=== PATIENT | male | born 1980 | race Hispanic/Latino ===

== ENCOUNTER 2018-04-03 20:23 | Emergency (ER) | payer MEDICARE ==
[~2018-04-03 20:23] MED LIST: ATOR20TA65 PO; LISI1TAB13 PO; METF10004 PO; METO-408 PO; MIRT15TA6 PO; OMEP20CA10 PO; PHEN100C9 PO; PROM25TA7 PO; RISP2TAB22 PO; ROPI2TAB2 PO; SERT100T12 PO; TAMS0.4C32 PO
[2018-04-03] MEDS ORDERED: AMOXICILLIN/POTASSIUM CLAV 875-125 TABLET PO ONE (20:46)
[2018-04-03] MEDS ORDERED: TETANUS/DIPHTHERIA TOXOID [ADULT] 0.5 ML VIAL IM ONE (20:47)
[2018-04-03] MEDS ORDERED: ACETAMINOPHEN EXTRA STRENGTH 500 MG TABLET ONE (21:27)
== END 2018-04-03 22:23 | disposition home or self-care (01) ==
LOC: EDH 20:23
DX: S61.452A Open bite of left hand, initial encounter (principal); E11.9 Type 2 diabetes mellitus without complications; E78.5 Hyperlipidemia, unspecified; I10 Essential (primary) hypertension; Z88.8 Allergy status to other drugs, medicaments and biological substances; W54.0XXA Bitten by dog, initial encounter; Y93.01 Activity, walking, marching and hiking; Y92.096 Garden or yard of other non-institutional residence as the place of occurrence of the external cause; Y99.8 Other external cause status
CPT/HCPCS: 12042; 73130; 90471; 90714

== ENCOUNTER 2018-12-25 20:48 | Emergency (ER) | payer MEDICARE ==
[~2018-12-25 20:48] MED LIST changes: +METF-446 PO; -METF10004 PO
[2018-12-25] MEDS ORDERED: SODIUM CHLORIDE 0.9% 500ML 500 ML IV ONE ×2 (21:53→22:59)
[2018-12-25 22:11] LABS: BASOPHILS % (AUTO) 0.4 % (0.0-5.0); EOSINOPHILS % (AUTO) 0.3 % (0.0-8.0); HEMATOCRIT 44.4 % (42-54); LYMPHOCYTES % (AUTO) 16.9 % (21.0-51.0); MEAN CORPUSCULAR HEMOGLOBIN 32.4 pg (27.0-33.0); MEAN CORPUSCULAR HGB CONC 34.6 g/dL (32.0-36.0); MEAN CORPUSCULAR VOLUME 93.6 fL (79-99); MONOCYTES % (AUTO) 4.6 % (3.0-13.0); NEUTROPHILS % (AUTO) 77.8 % (40.0-77.0); PLATELET COUNT (AUTO) 236 K/uL (130-400); RED BLOOD CELL COUNT(AUTO) 4.74 MIL/uL (4.50-6.20); RED CELL DISTRIBUTION WIDTH 12.5 % (11.0-15.5); WHITE BLOOD COUNT (AUTO) 9.9 K/uL (4.8-10.8)
[2018-12-25 22:14] LABS: POTASSIUM 3.6 mmol/L (3.5-5.1)
[2018-12-25 22:19] LABS: ALBUMIN 3.8 g/dL (3.5-5.0); BILIRUBIN,TOTAL 0.2 mg/dL (0.2-1.0); PHENYTOIN (DILANTIN) 1.5 mcg/mL (10.0-20.0); TOTAL PROTEIN, SERUM 7.6 g/dL (6.0-8.3)
[2018-12-25] MEDS ORDERED: PHENYTOIN SODIUM 100 MG ERCAP PO ONE (22:57)
[2018-12-25] MEDS ORDERED: PHENYTOIN SODIUM 50 MG/ML 5ML VIAL ONE (22:58)
== END 2018-12-26 01:28 | disposition home or self-care (01) ==
LOC: EDH 20:48
DX: S01.552A Open bite of oral cavity, initial encounter (principal); G40.802 Other epilepsy, not intractable, without status epilepticus; E11.65 Type 2 diabetes mellitus with hyperglycemia; R79.89 Other specified abnormal findings of blood chemistry; E78.5 Hyperlipidemia, unspecified; I10 Essential (primary) hypertension; Z72.0 Tobacco use; Z88.8 Allergy status to other drugs, medicaments and biological substances; Z79.899 Other long term (current) drug therapy; X58.XXXA Exposure to other specified factors, initial encounter; Y93.89 Activity, other specified; Y92.098 Other place in other non-institutional residence as the place of occurrence of the external cause; Y99.8 Other external cause status
CPT/HCPCS: 36415; 80053; 80185; 85025; 96365; 96366; 99283; J1165; J7040 ×2

== ENCOUNTER 2019-03-25 03:43 | Emergency (ER) | payer MEDICARE ==
[~2019-03-25 03:43] MED LIST changes: -PHEN100C9 PO
[2019-03-25 04:10] LABS: APPEARANCE,URINE Clear (CLEAR); BILIRUBIN,URINE Negative (NEGATIVE); COLOR,URINE Yellow (YELLOW); GLUCOSE, URINE (UA) Negative (NEGATIVE); KETONES,URINE Negative (NEGATIVE); LEUKOCYTE ESTERASE ,URINE Negative (NEGATIVE); NITRATE,URINE Negative (NEGATIVE); OCCULT BLOOD,URINE Negative (NEGATIVE); PH,URINE 6.5 (5.0-8.0); PROTEIN,URINE Negative (NEGATIVE); UROBILINOGEN,URINE 0.2 mg/dL (0.2-1.0)
[2019-03-25 04:11] LABS: BASOPHILS % (AUTO) 0.5 % (0.0-5.0); EOSINOPHILS % (AUTO) 0.3 % (0.0-8.0); HEMATOCRIT 40.3 % (42-54); LYMPHOCYTES % (AUTO) 18.6 % (21.0-51.0); MEAN CORPUSCULAR HEMOGLOBIN 33.8 pg (27.0-33.0); MEAN CORPUSCULAR HGB CONC 35.1 g/dL (32.0-36.0); MEAN CORPUSCULAR VOLUME 96.1 fL (79-99); MONOCYTES % (AUTO) 5.1 % (3.0-13.0); NEUTROPHILS % (AUTO) 75.5 % (40.0-77.0); PLATELET COUNT (AUTO) 220 K/uL (130-400); RED BLOOD CELL COUNT(AUTO) 4.19 MIL/uL (4.50-6.20)
[2019-03-25 04:19] LABS: AMPHET/METH SCREEN,URINE NEGATIVE (NEGATIVE); BARBITURATE SCREEN, URINE NEGATIVE (NEGATIVE); BENZODIAZEPINES SCREEN,URINE NEGATIVE (NEGATIVE); CANNABINOID SCREEN,URINE NEGATIVE (NEGATIVE); COCAINE SCREEN,URINE NEGATIVE (NEGATIVE); OPIATE SCREEN,URINE NEGATIVE (NEGATIVE); PHENCYCLIDINE SCREEN,URINE NEGATIVE (NEGATIVE)
[2019-03-25 04:20] LABS: CREATININE 0.7 mg/dL (0.5-1.5); POTASSIUM 3.4 mmol/L (3.5-5.1)
[2019-03-25 04:25] LABS: ALBUMIN 3.5 g/dL (3.5-5.0); BILIRUBIN,TOTAL 0.1 mg/dL (0.2-1.0); PHENYTOIN (DILANTIN) 6.1 mcg/mL (10.0-20.0); TOTAL PROTEIN, SERUM 6.8 g/dL (6.0-8.3)
[2019-03-25 04:29] LABS: PARTIAL THROMBOPLASTIN TIME 29.1 SEC (26.3-35.5); PROTHROMBIN TIME 10.5 SEC (9.6-11.6)
[2019-03-25] MEDS ORDERED: LEVETIRACETAM 500 MG/5 ML SD VIAL IV ONE (04:29)
[2019-03-25] MEDS ORDERED: SODIUM CHLORIDE 0.9% 250 ML IV ONE (04:30)
[2019-03-25] MEDS ORDERED: PHENYTOIN SODIUM 100 MG ERCAP PO ONE (04:58)
== END 2019-03-25 05:55 | disposition home or self-care (01) ==
LOC: EDH 03:43
DX: R89.2 Abnormal level of other drugs, medicaments and biological substances in specimens from other organs, systems and tissues (principal); R53.81 Other malaise; R41.0 Disorientation, unspecified; H93.19 Tinnitus, unspecified ear; E11.9 Type 2 diabetes mellitus without complications; Z88.6 Allergy status to analgesic agent; Z88.8 Allergy status to other drugs, medicaments and biological substances; Z72.0 Tobacco use
CPT/HCPCS: 36415; 80053; 80185; 80305; 81003; 82550; 83605; 84484; 85025; 85610; 85730; 93005; 96365; 99285; J1953; J7030; 96374

== ENCOUNTER 2019-09-21 20:18 | Emergency (ER) | payer MEDICARE ==
[~2019-09-21 20:18] MED LIST changes: -LISI1TAB13 PO; +LISI1TAB29 PO; +OMEP-50 PO; -OMEP20CA10 PO
[2019-09-21] MEDS ORDERED: FOSPHENYTOIN SODIUM 500 MG/10ML VIAL IJ ONE (20:53)
[2019-09-21 20:55] LABS: BASOPHILS % (AUTO) 2.9 % (0.0-5.0); EOSINOPHILS % (AUTO) 1.1 % (0.0-8.0); HEMATOCRIT 42.1 % (42-54); LYMPHOCYTES % (AUTO) 16.1 % (21.0-51.0); MEAN CORPUSCULAR HEMOGLOBIN 33.4 pg (27.0-33.0); MEAN CORPUSCULAR HGB CONC 34.7 g/dL (32.0-36.0); MEAN CORPUSCULAR VOLUME 96.2 fL (79-99); MONOCYTES % (AUTO) 3.8 % (3.0-13.0); NEUTROPHILS % (AUTO) 76.1 % (40.0-77.0); PLATELET COUNT (AUTO) 208 K/uL (130-400); RED BLOOD CELL COUNT(AUTO) 4.38 MIL/uL (4.50-6.20); RED CELL DISTRIBUTION WIDTH 13.2 % (11.0-15.5); WHITE BLOOD COUNT (AUTO) 8.1 K/uL (4.8-10.8)
[2019-09-21] MEDS ORDERED: SODIUM CHLORIDE 0.9% 1000ML 1,000 ML IV ONE (20:56)
[2019-09-21] MEDS ORDERED: SODIUM CHLORIDE 0.9% 100 ML IV ONE (20:57)
[2019-09-21 21:03] LABS: POTASSIUM 3.5 mmol/L (3.5-5.1)
[2019-09-21 21:08] LABS: ALBUMIN 3.6 g/dL (3.5-5.0); BILIRUBIN,DIRECT 0.1 mg/dL (0.0-0.3); BILIRUBIN,TOTAL 0.2 mg/dL (0.2-1.0); TOTAL PROTEIN, SERUM 7.2 g/dL (6.0-8.3)
[2019-09-21 21:24] LABS: AMPHET/METH SCREEN,URINE NEGATIVE (NEGATIVE); BARBITURATE SCREEN, URINE NEGATIVE (NEGATIVE); BENZODIAZEPINES SCREEN,URINE NEGATIVE (NEGATIVE); CANNABINOID SCREEN,URINE NEGATIVE (NEGATIVE); COCAINE SCREEN,URINE POSITIVE (NEGATIVE); OPIATE SCREEN,URINE NEGATIVE (NEGATIVE); PHENCYCLIDINE SCREEN,URINE NEGATIVE (NEGATIVE)
[2019-09-21] MEDS ORDERED: LORAZEPAM 2 MG/ML 1 ML VIAL ONE (21:27)
== END 2019-09-21 22:20 | disposition home or self-care (01) ==
LOC: EDH 20:18
DX: F14.10 Cocaine abuse, uncomplicated (principal); R56.9 Unspecified convulsions
CPT/HCPCS: 36415; 80048; 80076; 80305; 82550; 85025; 93005; 96374; 96375; 99285; J2060; J7030; Q2009

== ENCOUNTER 2019-11-27 18:46 | Emergency (ER) | payer MEDICARE ==
[~2019-11-27 18:46] MED LIST changes: -OMEP-50 PO; +OMEP20CA12 PO
[2019-11-27 19:41] LABS: BASOPHILS % (AUTO) 0.3 % (0.0-5.0); EOSINOPHILS % (AUTO) 0.3 % (0.0-8.0); HEMATOCRIT 42.3 % (42-54); LYMPHOCYTES % (AUTO) 13.5 % (21.0-51.0); MEAN CORPUSCULAR HEMOGLOBIN 31.9 pg (27.0-33.0); MEAN CORPUSCULAR VOLUME 91.2 fL (79-99); MONOCYTES % (AUTO) 5.6 % (3.0-13.0); NEUTROPHILS % (AUTO) 79.9 % (40.0-77.0); PLATELET COUNT (AUTO) 267 K/uL (130-400); RED BLOOD CELL COUNT(AUTO) 4.64 MIL/uL (4.50-6.20); RED CELL DISTRIBUTION WIDTH 12.2 % (11.0-15.5); WHITE BLOOD COUNT (AUTO) 10.4 K/uL (4.8-10.8)
[2019-11-27 19:45] LABS: CARBON DIOXIDE 27 mmol/L (21-32); CHLORIDE 95 mmol/L (101-111); CREATININE 1.1 mg/dL (0.5-1.5); GLOMERULAR FILTR. RATE CALC 79 mL/min (>60); GLUCOSE,RANDOM 152 mg/dL (70-105); POTASSIUM 3.7 mmol/L (3.5-5.1); SODIUM SERUM 133 mmol/L (136-145); UREA NITROGEN, BLOOD 10 mg/dL (7-18)
[2019-11-27 19:50] LABS: ALANINE AMINOTRANSFERASE 36 U/L (12-78); ALBUMIN 3.8 g/dL (3.5-5.0); ASPARTATE AMINOTRANSFERASE 20 U/L (10-37); BILIRUBIN,DIRECT < 0.1 mg/dL (0.0-0.3); BILIRUBIN,TOTAL 0.2 mg/dL (0.2-1.0); CREATINE KINASE, TOTAL 67 U/L (21-232); TOTAL PROTEIN, SERUM 7.6 g/dL (6.0-8.3)
[2019-11-27] MEDS ORDERED: PHENYTOIN SODIUM 100 MG ERCAP PO ONE (20:34)
[2019-11-27 20:44] LABS: AMPHET/METH SCREEN,URINE NEGATIVE (NEGATIVE); BARBITURATE SCREEN, URINE NEGATIVE (NEGATIVE); BENZODIAZEPINES SCREEN,URINE NEGATIVE (NEGATIVE); CANNABINOID SCREEN,URINE NEGATIVE (NEGATIVE); COCAINE SCREEN,URINE NEGATIVE (NEGATIVE); OPIATE SCREEN,URINE NEGATIVE (NEGATIVE); PHENCYCLIDINE SCREEN,URINE NEGATIVE (NEGATIVE)
== END 2019-11-27 21:36 | disposition home or self-care (01) ==
LOC: EDH 18:46
DX: G40.909 Epilepsy, unspecified, not intractable, without status epilepticus (principal); E11.9 Type 2 diabetes mellitus without complications; I10 Essential (primary) hypertension; Z88.6 Allergy status to analgesic agent; Z88.8 Allergy status to other drugs, medicaments and biological substances
CPT/HCPCS: 36415; 70450; 71046; 72125; 80048; 80076; 80185; 80305; 82550; 85025

== ENCOUNTER 2020-03-22 23:19 | Emergency (ER) | payer OTHER, MEDICARE ==
[~2020-03-22 23:19] MED LIST changes: -ROPI2TAB2 PO; +ROPI2TAB7 PO
[2020-03-22 23:48] LABS: BASOPHILS % (AUTO) 0.4 % (0.0-5.0); EOSINOPHILS % (AUTO) 0.5 % (0.0-8.0); HEMATOCRIT 41.8 % (42-54); MEAN CORPUSCULAR HEMOGLOBIN 32.4 pg (27.0-33.0); MEAN CORPUSCULAR HGB CONC 34.9 g/dL (32.0-36.0); MEAN CORPUSCULAR VOLUME 92.7 fL (79-99); MONOCYTES % (AUTO) 5.1 % (3.0-13.0); NEUTROPHILS % (AUTO) 77.7 % (40.0-77.0); PLATELET COUNT (AUTO) 237 K/uL (130-400); RED BLOOD CELL COUNT(AUTO) 4.51 MIL/uL (4.50-6.20); RED CELL DISTRIBUTION WIDTH 11.9 % (11.0-15.5); WHITE BLOOD COUNT (AUTO) 10.2 K/uL (4.8-10.8)
[2020-03-22 23:54] LABS: APPEARANCE,URINE Clear (CLEAR); BILIRUBIN,URINE Negative (NEGATIVE); COLOR,URINE Yellow (YELLOW); GLUCOSE, URINE (UA) Negative (NEGATIVE); KETONES,URINE Negative (NEGATIVE); LEUKOCYTE ESTERASE ,URINE Negative (NEGATIVE); NITRATE,URINE Negative (NEGATIVE); OCCULT BLOOD,URINE Negative (NEGATIVE); PROTEIN,URINE Negative (NEGATIVE); UROBILINOGEN,URINE 0.2 mg/dL (0.2-1.0)
[2020-03-22 23:58] LABS: POTASSIUM 4.1 mmol/L (3.5-5.1)
[2020-03-23 00:05] LABS: ALBUMIN 3.9 g/dL (3.5-5.0); BILIRUBIN,TOTAL 0.2 mg/dL (0.2-1.0); TOTAL PROTEIN, SERUM 7.5 g/dL (6.0-8.3)
[2020-03-23 00:22] LABS: INR 0.96 (0.85-1.15); PARTIAL THROMBOPLASTIN TIME 29.9 SEC (26.3-35.5); PROTHROMBIN TIME 10.4 SEC (9.6-11.6)
[2020-03-23 00:28] LABS: AMPHET/METH SCREEN,URINE NEGATIVE (NEGATIVE); BARBITURATE SCREEN, URINE NEGATIVE (NEGATIVE); BENZODIAZEPINES SCREEN,URINE NEGATIVE (NEGATIVE); CANNABINOID SCREEN,URINE NEGATIVE (NEGATIVE); COCAINE SCREEN,URINE POSITIVE (NEGATIVE); OPIATE SCREEN,URINE NEGATIVE (NEGATIVE); PHENCYCLIDINE SCREEN,URINE NEGATIVE (NEGATIVE)
[2020-03-23] MEDS ORDERED: PHENYTOIN SODIUM 100 MG ERCAP PO ONE (02:32)
== END 2020-03-23 03:12 | disposition home or self-care (01) ==
LOC: EDH 23:19
DX: I10 Essential (primary) hypertension (principal); E11.65 Type 2 diabetes mellitus with hyperglycemia; F14.10 Cocaine abuse, uncomplicated; T42.0X5A Adverse effect of hydantoin derivatives, initial encounter; Y92.89 Other specified places as the place of occurrence of the external cause; Z88.6 Allergy status to analgesic agent; Z88.8 Allergy status to other drugs, medicaments and biological substances; Z72.0 Tobacco use; Z79.899 Other long term (current) drug therapy
CPT/HCPCS: 36415; 71045; 80053; 80185; 80305; 81003; 82550; 84484; 85025; 85610; 85730; 93005

== ENCOUNTER 2020-08-04 02:26 | Emergency (ER) | payer OTHER, MEDICARE ==
[2020-08-04] MEDS ORDERED: FLUORESCEIN SODIUM 1 STRIP STRIP ONE (02:37)
[2020-08-04] MEDS ORDERED: TETRACAINE HCL 0.5% 4 ML OPHTH SOLN ONE (02:37)
[2020-08-04] MEDS ORDERED: HYDROCODONE/ACETAMINOPHEN 5/325 MG TAB ONE (03:02)
[2020-08-04] MEDS ORDERED: ERYTHROMYCIN BASE 0.5% OPHTH OINT 1 GM TUBE ONE (03:03)
== END 2020-08-04 03:45 | disposition home or self-care (01) ==
LOC: EDH 02:26
DX: T15.02XA Foreign body in cornea, left eye, initial encounter (principal); E11.9 Type 2 diabetes mellitus without complications; I10 Essential (primary) hypertension; F14.10 Cocaine abuse, uncomplicated; Z88.6 Allergy status to analgesic agent; Z88.8 Allergy status to other drugs, medicaments and biological substances; Z72.0 Tobacco use; Z79.899 Other long term (current) drug therapy; X58.XXXA Exposure to other specified factors, initial encounter; Y93.89 Activity, other specified; Y92.89 Other specified places as the place of occurrence of the external cause; Y99.8 Other external cause status
CPT/HCPCS: 65222

== ENCOUNTER 2020-10-17 19:57 | Emergency (ER) | payer OTHER, MEDICARE ==
[~2020-10-17 19:57] MED LIST changes: -RISP2TAB22 PO; +RISP2TAB86 PO
[2020-10-17 20:17] LABS: BASOPHILS % (AUTO) 0.4 % (0.0-5.0); EOSINOPHILS % (AUTO) 0.7 % (0.0-8.0); LYMPHOCYTES % (AUTO) 17.5 % (21.0-51.0); MEAN CORPUSCULAR HEMOGLOBIN 32.7 pg (27.0-33.0); MEAN CORPUSCULAR HGB CONC 35.2 g/dL (32.0-36.0); MEAN CORPUSCULAR VOLUME 92.7 fL (79-99); MONOCYTES % (AUTO) 4.2 % (3.0-13.0); NEUTROPHILS % (AUTO) 76.8 % (40.0-77.0); PLATELET COUNT (AUTO) 268 K/uL (130-400); RED BLOOD CELL COUNT(AUTO) 4.96 MIL/uL (4.50-6.20); RED CELL DISTRIBUTION WIDTH 12.3 % (11.0-15.5); WHITE BLOOD COUNT (AUTO) 11.6 K/uL (4.8-10.8)
[2020-10-17] MEDS ORDERED: SODIUM CHLORIDE 0.9% 1000ML 1,000 ML IV ONE (20:23)
[2020-10-17] MEDS ORDERED: LORAZEPAM 2 MG/ML 1 ML VIAL ONE (20:25)
[2020-10-17 20:32] LABS: ALBUMIN 4.2 g/dL (3.5-5.0); BILIRUBIN,TOTAL 0.4 mg/dL (0.2-1.0); POTASSIUM 5.3 mmol/L (3.5-5.1); TOTAL PROTEIN, SERUM 7.7 g/dL (6.0-8.3)
[2020-10-17] MEDS ORDERED: FOSPHENYTOIN SODIUM 500 MG/10ML VIAL IJ ONE (21:25)
[2020-10-17] MEDS ORDERED: SODIUM CHLORIDE 0.9% 50 ML IV ONE (21:26)
== END 2020-10-17 22:43 | disposition home or self-care (01) ==
LOC: EDH 19:57
DX: G40.909 Epilepsy, unspecified, not intractable, without status epilepticus (principal); R79.1 Abnormal coagulation profile; E11.9 Type 2 diabetes mellitus without complications; I10 Essential (primary) hypertension; E86.0 Dehydration; Z72.0 Tobacco use; Z79.899 Other long term (current) drug therapy; Z88.6 Allergy status to analgesic agent; Z88.8 Allergy status to other drugs, medicaments and biological substances
CPT/HCPCS: 36415; 80053; 80185; 85025; 93005; 96361; 96365; 96375; 99284; J2060; J7030; Q2009

== ENCOUNTER 2022-12-03 21:47 | Emergency (ER) | payer OTHER, MEDICARE ==
[~2022-12-03] VITALS: Ht 177.8 cm; Wt 146.7 kg
[~2022-12-03 21:47] MED LIST changes: -LISI1TAB29 PO; +LISI1TAB53 PO; +MIRT-22 PO; -MIRT15TA6 PO; +SERT-440 PO; -SERT100T12 PO
[2022-12-03 22:30] LABS: BASOPHILS % (AUTO) 0.7 % (0.0-5.0); EOSINOPHILS % (AUTO) 0.8 % (0.0-8.0); LYMPHOCYTES % (AUTO) 31.8 % (21.0-51.0); MEAN CORPUSCULAR HEMOGLOBIN 30.8 pg (27.0-33.0); MEAN CORPUSCULAR HGB CONC 34.5 g/dL (32.0-36.0); MEAN CORPUSCULAR VOLUME 89.2 fL (79-99); MONOCYTES % (AUTO) 5.9 % (3.0-13.0); NEUTROPHILS % (AUTO) 60.5 % (40.0-77.0); PLATELET COUNT (AUTO) 230 K/uL (130-400); RED BLOOD CELL COUNT(AUTO) 4.93 MIL/uL (4.50-6.20); RED CELL DISTRIBUTION WIDTH 12.1 % (11.0-15.5); WHITE BLOOD COUNT (AUTO) 7.6 K/uL (4.8-10.8)
[2022-12-03 22:32] LABS: APPEARANCE,URINE CLEAR (CLEAR); BILIRUBIN,URINE NEGATIVE (NEGATIVE); COLOR,URINE LIGHT-YELLOW (YELLOW); GLUCOSE, URINE (UA) >=1000 mg/dL (NEGATIVE); KETONES,URINE NEGATIVE (NEGATIVE); LEUKOCYTE ESTERASE ,URINE NEGATIVE Leu/uL (NEGATIVE); NITRATE,URINE NEGATIVE (NEGATIVE); OCCULT BLOOD,URINE NEGATIVE (NEGATIVE); PROTEIN,URINE 50 mg/dL (NEGATIVE); UROBILINOGEN,URINE 0.2 mg/dL (0.2-1.0)
[2022-12-03 22:39] LABS: AMPHET/METH SCREEN,URINE NEGATIVE (NEGATIVE); BARBITURATE SCREEN, URINE NEGATIVE (NEGATIVE); BENZODIAZEPINES SCREEN,URINE NEGATIVE (NEGATIVE); CANNABINOID SCREEN,URINE NEGATIVE (NEGATIVE); COCAINE SCREEN,URINE NEGATIVE (NEGATIVE); OPIATE SCREEN,URINE NEGATIVE (NEGATIVE); PHENCYCLIDINE SCREEN,URINE NEGATIVE (NEGATIVE)
[2022-12-03 22:40] LABS: CREATININE 1.1 mg/dL (0.5-1.5); POTASSIUM 3.5 mmol/L (3.5-5.1)
[2022-12-03 22:42] LABS: BACTERIA,URINE RARE /HPF (None Seen); MUCUS,URINE RARE LPF (None Seen); RBC,URINE 0-1 /HPF (0-1); SQUAMOUS EPITHELIAL CELL,UR RARE /HPF (0-2)
[2022-12-03 22:44] LABS: PHENYTOIN (DILANTIN) 4.2 mcg/mL (10.0-20.0); TOTAL PROTEIN, SERUM 7.7 g/dL (6.0-8.3)
[2022-12-04] MEDS ORDERED: FOSPHENYTOIN SODIUM 100 MG/2 ML VIAL IV SCH (01:00)
[2022-12-04] MEDS ORDERED: PHEN100C23 PO (01:20)
[2022-12-04 02:12] VITALS: BP 163/92
== END 2022-12-04 02:29 | disposition home or self-care (01) ==
LOC: EDH 21:47
DX: S09.90XA Unspecified injury of head, initial encounter (principal); R56.9 Unspecified convulsions; E11.9 Type 2 diabetes mellitus without complications; I10 Essential (primary) hypertension; Z79.899 Other long term (current) drug therapy; Z88.8 Allergy status to other drugs, medicaments and biological substances; Z98.890 Other specified postprocedural states; X58.XXXA Exposure to other specified factors, initial encounter; Y93.89 Activity, other specified; Y92.89 Other specified places as the place of occurrence of the external cause; Y99.8 Other external cause status
CPT/HCPCS: 99285; 96374; 70450; 80185; 80053; 80305; 85025; 36415; 93005; 81001; Q2009

== ENCOUNTER 2023-09-06 20:55 | Emergency (ER) | payer OTHER, MEDICARE ==
[~2023-09-06] VITALS: Ht 177.8 cm; Wt 136.1 kg
[~2023-09-06 20:55] MED LIST changes: +PHEN100C23 PO; +ROPI2TAB53 PO; -ROPI2TAB7 PO
[2023-09-06 21:29] LABS: BASOPHILS # (AUTO) 0.04 K/uL (0.00-0.20); BASOPHILS % (AUTO) 0.4 % (0.0-5.0); EOSINOPHILS # (AUTO) 0.11 K/uL (0.00-0.70); EOSINOPHILS % (AUTO) 1.1 % (0.0-8.0); HEMATOCRIT 46.7 % (42-54); IMMATURE GRANULOCYTE ABSOLUTE 0.03 K/uL (0-1); LYMPHOCYTES # (AUTO) 1.7 K/uL (1.0-4.8); LYMPHOCYTES % (AUTO) 17.1 % (21.0-51.0); MEAN CORPUSCULAR HEMOGLOBIN 32.4 pg (27.0-33.0); MEAN CORPUSCULAR HGB CONC 35.1 g/dL (32.0-36.0); MEAN CORPUSCULAR VOLUME 92.3 fL (79-99); MONOCYTES # (AUTO) 0.4 K/uL (0.1-1.0); NEUTROPHILS # (AUTO) 7.6 K/uL (1.8-7.7); NEUTROPHILS % (AUTO) 77.1 % (40.0-77.0); PLATELET COUNT (AUTO) 263 K/uL (130-400); RED BLOOD CELL COUNT(AUTO) 5.06 MIL/uL (4.50-6.20); RED CELL DISTRIBUTION WIDTH 12.8 % (11.0-15.5); WHITE BLOOD COUNT (AUTO) 9.9 K/uL (4.8-10.8)
[2023-09-06 21:41] LABS: BILIRUBIN,TOTAL 0.3 mg/dL (0.2-1.0); TOTAL PROTEIN, SERUM 7.8 g/dL (6.0-8.3)
[2023-09-06] MEDS ORDERED: LEVETIRACETAM 500 MG/5 ML SD VIAL IV SCH (23:00)
[2023-09-07] MEDS ORDERED: PHENYTOIN 100MG (50MG/ML) INJ 100 MG/2 ML ML IV SCH
[2023-09-07 01:12] VITALS: BP 140/78; PULSE 80; RESP 16; O2SAT 99
== END 2023-09-07 01:14 | disposition home or self-care (01) ==
LOC: EDH 20:55
DX: G40.909 Epilepsy, unspecified, not intractable, without status epilepticus (principal); E11.9 Type 2 diabetes mellitus without complications; E78.00 Pure hypercholesterolemia, unspecified; I10 Essential (primary) hypertension; F17.200 Nicotine dependence, unspecified, uncomplicated; Z91.148 Patient's other noncompliance with medication regimen for other reason
CPT/HCPCS: 99284; 96374; 80185; 80053; 85025; 36415; 72100; J1953

== ENCOUNTER 2025-10-07 16:14 | Inpatient (IN) | payer OTHER, MEDICARE ==
[~2025-10-07] VITALS: Ht 177.8 cm; Wt 140.8 kg
--- NOTE | 2025-10-07 16:33 | ERN ---
ED Note History of Present Illness Stated Complaint: ABSCESS Chief Complaint: Abscess Time Seen by MD: 16:17 Dictation: Patient is a 44-year-old diabetic male coming in today with complaints of scrotal pain swelling for the last several days. He states he has a history of a perianal and scrotal abscess that has been drain twice at [facility] [place], has been seeing Dr. York in wound care. No fever no chills, patient is tachycardic in triage. He has a diabetic on Mounjaro, does not check his blood sugar. Allergies: Coded Allergies: ketorolac (Unverified Allergy, Mild, 09/09/15) pregabalin (Unverified Allergy, Unknown, SEIZURES, 09/07/15) Home Meds Reported Medications Glimepiride (Glimepiride) 2 Mg Tablet, 1 TAB PO DAILY 05/24/25 Metformin HCl (Metformin HCl) 1,000 Mg Tablet, 1 TAB PO BID 05/24/25 Hydrochlorothiazide (Hydrochlorothiazide) 25 Mg Tablet, 1 TAB PO BID 05/24/25 Lisinopril (Lisinopril) 40 Mg Tablet, 1 TAB PO BID 05/24/25 Zolpidem Tartrate (Zolpidem Tartrate) 5 Mg Tablet, 1 TAB PO HSPRN PRN for INSOMNIA 05/24/25 Atorvastatin Calcium (Atorvastatin Calcium) 40 Mg Tablet, 1 TAB PO DAILY 05/24/25 Hydrocodone/Acetaminophen (Hydrocodon-Acetaminophn 10-325) 10 Mg-325 Mg Tablet, 1 TAB PO BID for pain 05/24/25 Phenytoin Sodium Extended (Dilantin) 100 Mg Capsule, 1 CAP PO TID 05/24/25 Tirzepatide (Mounjaro) 15 Mg/0.5 Ml Pen.injctr, 0.5 ML SQ QWEEK Q Sunday05/24/25 Past Medical History Past Medical History: Diabetes-Type II, High Cholesterol, Hypertension, Seizure Surgical History: Other Surgical History Other: RT ANKLE SX, LT KNEE SX, TESTICULAR ABSCESS Family History: Negative Social History: Smokers, Lives with family RN Note Reviewed/Agreed w/PFSH: Yes Review of System Dictation CONSTITUTIONAL: Negative except for HPI HEAD/FACE: Negative except for HPI EENT: Negative except for HPI RESPIRATORY: Negative except for HPI GASTROINTESTINAL/ABDOMINAL: Negative except for HPI GENITOURINARY: Negative except for HPI testicular pain swelling MUSCULOSKELETAL: Negative except for HPI INTEGUMENTARY: Negative except for HPI NEUROLOGICAL/PSYCH: Negative except for HPI HEMATOLOGIC/LYMPHATIC: Negative except for HPI All Systems Negative, Except as noted above. 13 point review of systems assessed and all negative except for above. Initial Vital Sign VS Vital Signs Date Time Temp Pulse Resp B/P (MAP) Pulse Ox O2 Delivery O2 Flow Rate FiO2 10/07/25 16:16 98.2 110 18 159/83 98 Room Air 0 10/07/25 16:42 21 Physical Exam Dictation Vital Signs reviewed General Appearance: Alert, oriented x 3, n moderate acute distress, well developed, nourished. Morbid obesity Head and Face: non-traumatic. Eyes: PERRL, pink conjunctivas, eyelid no trauma, anterior chamber with arcus senilis. Ears: Pinnas intact and no signs of trauma or erythema ear canals clear and no discharge TM no erythema Nose: No discharge, no bleeding. Oropharynx: Mouth normal, tongue pink, pharynx clear,no erythema, tonsils no exudates, no abscesses noted, mucous membrane moist Neck: Supple, non-tender, no thyromegaly, no masses, no JVD, no bruits Breast:Deferred Chest:No tenderness, no crepitus, no paradoxical movement, no retractions Lungs:Clear, well-ventilated, symmetric, no rales, no wheezing, no rhonchi, no stridor, good breath sounds bilaterally Heart: Regular rate, regular rhythm, no murmur, no gallops Vascular: no peripheral edema, Abdomen: Soft, positive bowel sounds, nondistended, no guarding, nontender, no rebound, no masses no hepatomegaly, no splenomegaly, no Barksdale's sign, no hernias. Rectal: Deferred Genital: Patient has a fluctuant abscess to the base of the scrotum. No signs of Roberta Neurological: Normal speech, motor function intact, sensory function intact Musculoskeletal: Neck nontender, full range of motion, back nontender, full range of motion, Extremities: nontender, full range of motion Skin: Color pink, dry, no turgor, no rash, no lacerations, no abrasions, no contusions. Lymphatic: Deferred Results (Laboratory/Radiology) Laboratory/Radiology Laboratory Tests Test 12/3/25 16:35 10/07/25 17:26 10/07/25 18:31 White Blood Count 11.3 K/uL (4.8-10.8) H Red Blood Count 4.79 MIL/uL (4.50-6.20) Hemoglobin 15.7 g/dL (14.0-18.0) Hematocrit 44.1 % (42-54) Mean Corpuscular Volume 92.1 fL (79-99) Mean Corpuscular Hemoglobin 32.8 pg (27.0-33.0) Mean Corpuscular Hemoglobin Concent 35.6 g/dL (32.0-36.0) Red Cell Distribution Width 12.6 % (11.0-15.5) Platelet Count 270 K/uL (130-400) Mean Platelet Volume 10.2 fL (7.5-10.5) Immature Granulocyte % (Auto) 0.3 % (0-1) Neutrophils (%) (Auto) 78.8 % (40.0-77.0) H Lymphocytes (%) (Auto) 13.9 % (21.0-51.0) L Monocytes (%) (Auto) 6.3 % (3.0-13.0) Eosinophils (%) (Auto) 0.4 % (0.0-8.0) Basophils (%) (Auto) 0.3 % (0.0-5.0) Neutrophils # (Auto) 8.9 K/uL (1.8-7.7) H Lymphocytes # (Auto) 1.6 K/uL (1.0-4.8) Monocytes # (Auto) 0.7 K/uL (0.1-1.0) Eosinophils # (Auto) 0.04 K/uL (0.00-0.70) Basophils # (Auto) 0.03 K/uL (0.00-0.20) Absolute Immature Granulocyte (auto 0.03 K/uL (0-1) Nucleated Red Blood Cells 0.0 % (0.0-0.19) Sodium Level 131 mmol/L (136-145) L Potassium Level 4.1 mmol/L (3.5-5.1) Chloride Level 91 mmol/L (101-111) L Carbon Dioxide Level 27 mmol/L (21-32) Blood Urea Nitrogen 13 mg/dL (7-18) Creatinine 1.1 mg/dL (0.5-1.3) Glomerular Filtration Rate Calc 84 mL/min (>90) Random Glucose 409 mg/dL (70-105) *H Lactic Acid Level 2.6 mmol/L (0.8-2.5) H Total Calcium 9.3 mg/dL (8.5-10.1) Whole Blood Ketones Quantitative 0.4 mmol/L (0.0-0.6) Whole Blood Glucose 318 MG/DL (70-110) H EXAM: US Scrotum. CLINICAL HISTORY: RIGHT TESTICULAR PAIN SWELLING. HISTORY OF SCROTAL ABSCESS TECHNIQUE: Real-time ultrasound of the scrotum with color Doppler and image documentation. COMPARISON: None provided. FINDINGS: RIGHT TESTICLE: Normal in size and echogenicity, no abnormal mass. Normal Doppler flow. The right testis measuring 4.8 3.1 2.7 cm. LEFT TESTICLE: Normal in size and echogenicity, no abnormal mass. Normal Doppler flow. The left testis measures 5.0 3.5 3.0 cm. EPIDIDYMIDES: Within normal limits in size and vascularity SCROTUM: No hydrocele, varicocele, or extratesticular mass seen. The right scrotal sac is markedly thickened, and a complex collection is identified within the right scrotal wall or perineal region, measuring approximately 2.9 3.5 3.2 cm The left scrotal wall thickness is approximately 11 mm. The right scrotal wall thickness is approximately 13 mm. IMPRESSION: The right scrotal sac is markedly thickened, and a complex collection is identified within the right scrotal wall or perineal region, measuring approximately 2.9 3.5 3.2 cm Findings are consistent with a right scrotal wall or perineal collection with associated scrotal wall thickening. Bilateral testicular vascularity is maintained Labs Reviewed?: Yes ED Course ED Course Orders Procedure Category Date Status Time Blood Cult BASHIR 10/07/25 In Process 16:24 Lactic Acid LAB 10/07/25 Complete 16:24 Cbc With Differential LAB 10/07/25 Complete 16:24 Urinalysis Profile LAB 10/07/25 Logged 16:24 Basic Metabolic Panel LAB 10/07/25 Complete 16:24 0.9%Nacl 1000ml (Ns PHA 10/07/25 Complete 1000ml) 16:30 Morphine 2mg Syg PHA 10/07/25 Complete (Morphine 2mg Syg) 16:30 Ondansetron 4mg Inj PHA 10/07/25 Complete (Zofran 4mg Inj) 16:30 Us Scrotum & Contents US 10/07/25 Resulted 16:28 0.9%Nacl 1000ml (Ns PHA 10/07/25 Complete 1000ml) 17:00 Zosyn 3.375gm+Ns 50ml PHA 10/07/25 Complete (Zosyn 3.375gm+Ns 16:57 Insulin Regular, PHA 10/07/25 Complete Human 3ml (Humulin R 17:30 Ketone Blood LAB 10/07/25 Complete Quantitative 17:18 Edm Admit Bridge Order ADM 10/07/25 Verified 19:23 Current Medications Medications (Trade) Dose Ordered Sig/Denae Route PRN Reason Start Time Stop Time Status Last Admin Dose Admin Insulin Human Regular (humuLIN R 100 UNIT/ML 3ML) 12 unit ONCE ONCE IV 10/07/25 17:30 10/07/25 17:31 DC 10/07/25 18:46 Morphine Sulfate (morPHINE 2MG SYG) 2 mg ONCE ONCE IVP 10/07/25 16:30 10/07/25 16:31 DC 10/07/25 17:02 Ondansetron HCl (zoFRAN 4MG INJ) 4 mg ONCE ONCE IVP 10/07/25 16:30 10/07/25 16:31 DC 10/07/25 17:01 Piperacillin Sod/ Tazobactam Sod (Zosyn 3.375gm+NS 50ml) 3.375 gm ONCE STAT IVPB 10/07/25 16:57 10/07/25 17:06 DC 10/07/25 17:14 Sodium Chloride 1,000 ml @ 0 mls/hr ONCE ONCE IV 10/07/25 16:30 10/07/25 16:31 DC 10/07/25 17:03 Sodium Chloride 1,000 ml @ 0 mls/hr ONCE ONCE IV 10/07/25 17:00 10/07/25 17:06 DC 10/07/25 17:17 Vital Signs Date Time Temp Pulse Resp B/P (MAP) Pulse Ox O2 Delivery O2 Flow Rate FiO2 10/07/25 16:42 98.1 109 19 137/78 98 Room Air* 0 21 10/07/25 16:16 98.2 110 18 159/83 98 Room Air 0 1720/patient has a 11.2 WBCs with lactic acid 2.6. In addition he has uncontrolled diabetes with a blood sugar of 4-0 nine Fluid resuscitation and Zosyn has been initiated for sepsis and the scrotal abscess We will give Humulin regular insulin 12 units IV push with fluids Anticipate admission to the hospital. 1917/spoke with Dr. GONZALEZ reviewed ultrasound labs interventions for sepsis to include Zosyn and fluids. Additionally he is aware patient has had Humulin regular insulin 10 units IV push. He agreed to admit patient. Medical Decision Making MDM MDM: DIFFERENTIAL DIAGNOSIS: SCROTAL ABSCESS/PERINEAL ABSCESS/ROBERTA'S GANGRENE/ELECTROLYTE IMBALANCE/DEHYDRATION/U PREVIOUS OUTSIDE RECORDS REVIEWED: OLD ER VISITS. RISK OF COMPLICATION AND/OR MORBIDITY OR MORTALITY OF PATIENT MANAGEMENT: MODERATE TO SEVERE MEDICATIONS-PER MEDICATION RECONCILIATION NEED FOR HOSPITALIZATION: PATIENT DOES MEET CRITERIA FOR HOSPITALIZATION. PATIENT WILL BE ADMITTED FOR SCROTAL ABSCESS, UROLOGY CONSULTATION MANAGEMENT AND CONTROL OF HIS DIABETES. NEED FOR EMERGENCY MAJOR/MINOR SURGERY: NO, PATIENT WILL NEED AN I&D OF HIS SCROTAL ABSCESS THERE ARE NO SOCIAL CONCERNS WITH THIS PATIENT. PRESCRIPTION DRUG MANAGEMENT PRESCRIPTIONS WILL INCLUDE SYMPTOMATIC CARE PATIENT'S PRIOR EXTERNAL MEDICAL RECORDS FROM OTHER ER VISITS WERE REVIEWED BY ME INDICATED. PRIOR TESTING AND RESULTS FROM PREVIOUS VISITS WERE REVIEWED. PRIOR TESTS WERE TAKEN INTO ACCOUNT WITH MEDICAL DECISION MAKING AND RESOURCE UTILIZATION, INDEPENDENT HISTORIAN/HISTORIANS WERE USED TO OBTAIN COMPLETE MEDICAL HISTORY. I INDEPENDENTLY INTERPRETED THE TEST THAT WERE PERFORMED, RESULTS WERE REVIEWED BY ME AND CONSIDERED FINDINGS ON RADIOLOGY IF ORDERED. MEDICAL MANAGEMENT AND EXAMINATION INTERPRETATION DISCUSSIONS WERE HAD BY ME WITH OTHER QUALIFIED HEALTHCARE PROFESSIONALS INDICATED FOR THE PATIENT'S CARE. DX & DISP Disposition: Inpatient Decision to Admit Time: 18:39 Departure Impression: Primary Impression: Scrotal wall abscess Additional Impressions: Hyponatremia, Hypochloremia, Uncontrolled diabetes mellitus, Sepsis Condition: Stable Referrals: LIZETT STUART MD (PCP) Time of Disposition: 18:39 I have reviewed the case, and I agree with, Diagnosis and Plan LELAND CESPEDES Oct 07, 2025 16:33
[2025-10-07 16:56] LABS: IMMATURE GRANULOCYTE ABSOLUTE 0.03 K/uL (0-1); NUCLEATED RED BLOOD CELLS 0.0 % (0.0-0.19); PLATELET COUNT (AUTO) 270 K/uL (130-400); RED BLOOD CELL COUNT(AUTO) 4.79 MIL/uL (4.50-6.20); RED CELL DISTRIBUTION WIDTH 12.6 % (11.0-15.5); WHITE BLOOD COUNT (AUTO) 11.3 K/uL (4.8-10.8)
[2025-10-07 17:03] LABS: CREATININE 1.1 mg/dL (0.5-1.3); GLOMERULAR FILTR. RATE CALC 84.0 mL/min (>90); SODIUM SERUM 131.0 mmol/L (136-145); UREA NITROGEN, BLOOD 13.0 mg/dL (7-18)
[2025-10-07] MEDS: 0.9%NACL 1000ML 1,000 ML IV ONE ×2 (17:03→17:17)
[2025-10-07 17:11] LABS: GLUCOSE,RANDOM 409.0 mg/dL (70-105)
[2025-10-07] MEDS: ZOSYN 3.375GM +NS 50ML IVPB STA (17:14)
--- NOTE | 2025-10-07 17:42 | HMCIMG ---
EXAM: US Scrotum. CLINICAL HISTORY: RIGHT TESTICULAR PAIN SWELLING. HISTORY OF SCROTAL ABSCESS TECHNIQUE: Real-time ultrasound of the scrotum with color Doppler and image documentation. COMPARISON: None provided. FINDINGS: RIGHT TESTICLE: Normal in size and echogenicity, no abnormal mass. Normal Doppler flow. The right testis measuring 4.8 3.1 2.7 cm. LEFT TESTICLE: Normal in size and echogenicity, no abnormal mass. Normal Doppler flow. The left testis measures 5.0 3.5 3.0 cm. EPIDIDYMIDES: Within normal limits in size and vascularity SCROTUM: No hydrocele, varicocele, or extratesticular mass seen. The right scrotal sac is markedly thickened, and a complex collection is identified within the right scrotal wall or perineal region, measuring approximately 2.9 3.5 3.2 cm The left scrotal wall thickness is approximately 11 mm. The right scrotal wall thickness is approximately 13 mm. IMPRESSION: The right scrotal sac is markedly thickened, and a complex collection is identified within the right scrotal wall or perineal region, measuring approximately 2.9 3.5 3.2 cm Findings are consistent with a right scrotal wall or perineal collection with associated scrotal wall thickening. Bilateral testicular vascularity is maintained /[place]
--- NOTE | 2025-10-07 18:47 | NUR ---
PER LELAND CESPEDES THREAD MACHINE OPERATOR, OKAY TO GIVE 10 UNITS OF IV INSULIN FOR FINGERSTICK BLOOD GLUCOSE OF 318, PATIENT RESTING IN BED, CALL LIGHT IN REACH N
--- NOTE | 2025-10-07 19:25 | NUR ---
PT CARE ASSUMED AT THIS TIME
[2025-10-07] MEDS ORDERED: VANCOMYCIN PROTOCOL PER PHARMACY IV SCH (19:30)
[2025-10-07] MEDS: 0.9%NACL 1000ML 1,000 ML IV SCH (20:37)
--- NOTE | 2025-10-07 20:53 | NUR ---
ATTEMPT TO GIVE REPORT. NOT SUCCESSFUL.
--- NOTE | 2025-10-07 21:01 | NUR ---
REPORT GIVEN TO CAT RN AT THIS TIME
[2025-10-07] MEDS: VANCOMYCIN 1.5 GM/250 ML BAG 250 ML IV SCH (21:10)
[2025-10-07 21:18] LABS: APPEARANCE,URINE CLEAR (CLEAR); GLUCOSE, URINE (UA) >=1000 mg/dL (NEGATIVE); LEUKOCYTE ESTERASE ,URINE NEGATIVE Leu/uL (NEGATIVE); NITRATE,URINE NEGATIVE (NEGATIVE); OCCULT BLOOD,URINE NEGATIVE (NEGATIVE)
[2025-10-07 21:19] LABS: ADD UA MICROSCOPIC YES
[2025-10-07 21:30] VITALS: BP 149/77; PULSE 87; RESP 20; TEMP 97.9
[2025-10-07 21:35] VITALS: O2SAT 97
[2025-10-08] VITALS (7 sets, daily range): BP systolic 116–142; BP diastolic 79–90; PULSE 76–88; RESP 18–20; TEMP 97.8–98.5; O2SAT 96–99
[2025-10-08 05:02] LABS: NUCLEATED RED BLOOD CELLS 0.0 % (0.0-0.19); PLATELET COUNT (AUTO) 198.0 K/uL (130-400); RED BLOOD CELL COUNT(AUTO) 4.05 MIL/uL (4.50-6.20); RED CELL DISTRIBUTION WIDTH 12.9 % (11.0-15.5); WHITE BLOOD COUNT (AUTO) 8.4 K/uL (4.8-10.8)
[2025-10-08 05:13] LABS: ASPARTATE AMINOTRANSFERASE 12.0 U/L (10-37); CREATININE 0.8 mg/dL (0.5-1.3); GLOMERULAR FILTR. RATE CALC 111.0 mL/min (>90); GLUCOSE,RANDOM 236.0 mg/dL (70-105); SODIUM SERUM 134.0 mmol/L (136-145); TOTAL PROTEIN, SERUM 6.4 g/dL (6.0-8.3); UREA NITROGEN, BLOOD 11.0 mg/dL (7-18)
--- NOTE | 2025-10-08 08:14 | NUR ---
HOME MEDICATIONS PATIENT UNABLE TO VOICE NAMES/DOSAGES ON HOME MEDICATIONS. CONTACTED [facility] PHARMACY, [facility] IN [place], SPOKE WITH PHARMACIST AND CONFIRMED NAMES, DOSAGES AND FREQUENCIES OF RECENT FILLED MEDICATIONS. UPDATED HOME LIST. NOTIFIED PRIMARY TO RECONCILE. PENDING CALLBACK.
--- NOTE | 2025-10-08 08:18 | NUR ---
HOME MEDICATIONS DR. GONZALEZ CALLED BACK, TORB OK TO RESTART HOME MEDICATIONS. ORDERS PLACED AND WILL CARRY OUT.
[2025-10-08] MEDS: PHENYTOIN SODIUM 100 MG ERCAP PO SCH (09:11)
[2025-10-08] MEDS: ENOXAPARIN SODIUM 40 MG/0.4 ML SYRINGE SQ SCH (09:11)
[2025-10-08] MEDS: EMPAGLIFLOZIN 10MG TABLET PO SCH (09:11)
[2025-10-08] MEDS: LISINOPRIL 40 MG TABLET PO SCH (09:11)
[2025-10-08] MEDS ORDERED: COMPOUND IV REFRIGERATED 1 EACH IVSOLN MISC PRN (09:30)
--- NOTE | 2025-10-08 10:06 | NUR ---
DCP:HOME Pt currently lives at home with his parents. Pt has a cane and shower chair at home. Pt has a provider that works with him 5 hrs a day and assists him with all ADLs, home management, and meals. PCP is Dr. Radhames Lyons and uses [facility] for any RX needs. At DC pt will want to go home and family can assist with transportation.
--- NOTE | 2025-10-08 11:03 | NUR ---
UROLOGY CONSULT ORDERS FOR UROLOGY CONSULT OBTAINED BY DR. GONZALEZ. CONTACTED DR. GARVEY'S OFFICE X3 ATTEMPTS. NO ANSWER. LEFT VM REGARDING CONSULT. PENDING CALLBACK. CHARGE NURSE NOTIFIED.
[2025-10-08] MEDS ORDERED: PHARMACY COMMUNICATION 1 EACH EACH MISC SCH (14:30)
[2025-10-08] MEDS: MAGNESIUM 2GM PREMIX 50ML 50 ML IV PRN (18:07)
--- NOTE | 2025-10-08 19:50 | NUR ---
MD DR GARVEY IN TO SEE PT. NEW ORDERS GIVEN, PLEASE REFER TO CPOE. MD CALLED DRAWER HARDWARE WORKER AND INFORMED OF PLANNED SX IN AM. DRAWER HARDWARE WORKER DJ SPOKE WITH DAM TENDER ASSISTANT AND ORDERS FAXED TO HER. SHIFT ASSESSMENT DONE, PLEASE REFER TO CHART. DUE MEDS ADMINISTERED, TOLERATED WELL. KEPT RESTED AND COMFORTABLE IN BED. CALL LIGHT WITHIN REACH. INSTRUCTED TO BE NPO POST [place] FOR PLANNED SX IN AM. PT VERBALIZES UNDERSTANDING.
--- NOTE | 2025-10-08 23:27 | HMCIMG ---
EXAM: CT Abdomen and Pelvis Without IV contrast CLINICAL HISTORY: Scrotal abscess. TECHNIQUE: Axial computed tomography images of the abdomen and pelvis without intravenous contrast. COMPARISON: CT abdomen and pelvis dated 08/19/2025. FINDINGS: LUNG BASES: The lung bases appear clear. No pleural effusions are seen. LIVER: Mild hepatomegaly. Diffuse hepatic steatosis. GALLBLADDER AND BILE DUCTS: Contracted gallbladder. No radioopaque gallstones are seen. No biliary ductal dilatation is evident. PANCREAS: Unremarkable. SPLEEN: Mild splenomegaly. ADRENAL GLANDS: Unremarkable. KIDNEYS, URETERS, AND BLADDER: Bilateral perinephric fat stranding. There is no hydronephrosis or hydroureter. No urinary calculi are seen. Mild thickening of the urinary bladder wall measuring 3-4 mm. STOMACH AND BOWEL: Unremarkable appearance of the stomach and bowel. No evidence of bowel obstruction. No evidence suggesting enteritis or colitis. APPENDIX: No evidence of acute appendicitis on CT examination. PERITONEUM: No free fluid. No free air. LYMPH NODES: No lymphadenopathy is evident. REPRODUCTIVE: Unremarkable as visualized. VASCULATURE: No evidence of abdominal aortic aneurysm. Atherosclerotic intimal wall calcifications involving the abdominal aorta and its branches BONES: No aggressive appearing osseous lesion. No acute osseous pathology is evident. Subcutaneous edema with cellulitis in the perineal region and scrotum with an ill-defined hypodense area measuring 2.2 x 3 cm at the level of the root of the scrotum IMPRESSION: Subcutaneous edema and cellulitis in the perineal region and scrotum with an ill-defined 2.2 3 cm hypodense area at the scrotal root concerning an abscess. Suggested USG scrotum correlation. Mild hepatomegaly with diffuse hepatic steatosis. Bilateral perinephric fat stranding is concerning for mild acute pyelonephritis. Suggested clinical and lab parameters correlation. Mild urinary bladder wall thickening concerning mild cystitis. Comparison with prior CT is difficult due to technical limitations. /Jas
[2025-10-09] VITALS (25 sets, daily range): BP systolic 83–159; BP diastolic 0–87; PULSE 76–99; RESP 15–20; TEMP 97.4–98.3; O2SAT 93–97
--- NOTE | 2025-10-09 05:05 | NUR ---
PAIN PT CALLS FOR PAIN MEDICATION. CLAIMS OF PERIANAL AND SCROTAL PAINS. MEDICATED WITH DILAUDID IV. KEPT RESTED IN BED. RE-ITERATED FALL PRECAUTIONS. KEPT NPO FO SX. CALL LIGHT WITHIN REACH. FOR MORE CARE.
[2025-10-09 05:08] LABS: NUCLEATED RED BLOOD CELLS 0.0 % (0.0-0.19); PLATELET COUNT (AUTO) 218.0 K/uL (130-400); RED BLOOD CELL COUNT(AUTO) 4.26 MIL/uL (4.50-6.20); RED CELL DISTRIBUTION WIDTH 12.7 % (11.0-15.5); WHITE BLOOD COUNT (AUTO) 6.6 K/uL (4.8-10.8)
[2025-10-09 05:20] LABS: INR 0.98 (0.85-1.15)
[2025-10-09 05:21] LABS: CREATININE 0.7 mg/dL (0.5-1.3); GLOMERULAR FILTR. RATE CALC 116.0 mL/min (>90); GLUCOSE,RANDOM 152.0 mg/dL (70-105); SODIUM SERUM 138.0 mmol/L (136-145); UREA NITROGEN, BLOOD 11.0 mg/dL (7-18)
--- NOTE | 2025-10-09 06:57 | HP ---
DATE OF SERVICE: 10/07/2025 HISTORY AND PHYSICAL PRESENTING COMPLAINT: Scrotal pain and swelling. HISTORY OF PRESENT ILLNESS: This is a 44-year-old male with a history of poorly controlled diabetes mellitus, hypertension, obesity, depression, and seizure disorder, presented with scrotal pain and swelling. The patient claims swelling has been going on for about 4 days and noticed some fever and chills, decided to come to the Emergency Room. In the ER, the patient was found with a blood glucose of 409. Lactic acid elevated at 2.6. WBC also elevated at 11.4. No cough. No shortness of breath. No palpitations or orthopnea. Denied dysuria or urinary frequency. No rashes or itchiness. No bleeding tendency. PAST MEDICAL HISTORY: * Diabetes mellitus. * Obesity. * Perineal abscess. * Seizure disorder. * BPH. * Hypertension. PAST SURGICAL HISTORY: * Right ankle surgery. * Left ankle surgery. * Incision and drainage of perineal abscess. ALLERGIES: * TORADOL. * LYRICA. HOME MEDICATIONS: Reviewed. SOCIAL HISTORY: No alcohol or tobacco or illicit drug use. FAMILY HISTORY: Positive for diabetes mellitus. REVIEW OF SYSTEMS: CONSTITUTIONAL: Positive for chills. No weight loss or night sweats. EYES: No eye pain. No photophobia or diplopia. HENT: No sore throat. No rhinorrhea. NECK: No neck pain or neck swelling. RESPIRATORY: No cough. No hemoptysis or pleuritic pain. CARDIOVASCULAR: No chest pain, palpitations, or orthopnea. GASTROINTESTINAL: No nausea, vomiting, or abdominal pain. GENITOURINARY: Positive for right scrotal pain, swelling, redness. CENTRAL NERVOUS SYSTEM: No headache, dizziness, or slurred speech. PSYCHIATRY: No depression. No suicidal ideation. HEMATOLOGIC: No bleeding or petechial lesions seen. MUSCULOSKELETAL: No joint swelling, erythema, or tenderness. BACK: No deformity. No pressure ulcer. PHYSICAL EXAMINATION: GENERAL: A young male, awake. VITAL SIGNS: Temperature 97.9, pulse 87, respiratory rate 20, BP 114/77. EYES: No icterus. Pupils are equal and reactive. HENT: No oral thrush seen. Moist oral mucosa. NECK: Supple. No JVD or thyromegaly. LUNGS: Good air entry. No rales. No rhonchi. CARDIOVASCULAR SYSTEM: S1 and S2 regular. No murmur heard. ABDOMEN: Full, soft. Nontender. Morbidly obese. No organomegaly. CENTRAL NERVOUS SYSTEM: Awake, alert and oriented x 3. No focal deficits. SKIN: No rashes. No itchiness. LYMPHATIC: No peripheral lymphadenopathy. MUSCULOSKELETAL: No joint swelling, erythema, or tenderness. GENITOURINARY: Scrotal wall tenderness and swelling involving the right side. No rectal examination. VASCULAR: No ischemia or gangrene of extremities. LABORATORY DATA: WBC 11.3, hemoglobin 15.7, platelets 270. Lactic acid 2.6, glucose 409. Sodium 131, potassium 4.1, BUN 13, creatinine 1.1. RADIOLOGY: Scrotal sonogram shows right scrotal wall swelling. ASSESSMENT: A 44-year-old male who presented with scrotal wall swelling, fever and chills. CURRENT PROBLEMS: Include: * Sepsis. * Right scrotal wall abscess. * Right scrotal wall abscess. * Nonketotic hyperglycemia. * Morbid obesity. * Medical noncompliance. * Seizure disorder. * Debility. PLAN: * Admit the patient to medical floor. * Start the patient on Zosyn. * Start the patient on IV fluids. * The patient will be placed on insulin sliding scale. * Motrin as needed for pain. * Zofran as needed for nausea and vomiting. * Home medications will be reconciled. * The patient will be followed up closely. Thank you for allowing me to participate in the care of this patient. TID: [id number] RECEIPT: [id number] [facility]
--- NOTE | 2025-10-09 07:05 | CONS ---
REQUESTING PHYSICIAN: Real Lopez MD. REASON FOR CONSULTATION: Perineal abscess and scrotal abscess. HISTORY OF PRESENT ILLNESS: Dear Dr. Longoria, I had the pleasure of seeing your patient in consultation for evaluation of a scrotal abscess. This is a 44-year-old male, morbidly obese, weighs about 300 pounds, apparently has had a perineal and perineal scrotal abscess for the last 12 months. The patient had an incision and drainage procedure performed in 05/2025 and then recovered from that incompletely and then had a reoccurrence occurring in 08/2025 for which he had another incision, drainage, and debridement. Apparently, he was doing well, he says, until about 3 days ago. He was being seen by Wound Care but developed scrotal and perineal pain making it difficult for him to walk. He presents to the emergency room. Recurrent perineal abscess is identified and the consultation with Urology requested. The patient is encountered lying in bed comfortably. He has difficulty walking primarily because of his perineal abscess. He has had a scrotal ultrasound that reveals normal testicles bilaterally and does not really give much anatomic information regarding the location of the abscess outside of reactive swelling of the scrotal wall inferiorly. The patient has no voiding difficulties. ALLERGIES: APPARENTLY TO KETOROLAC. MEDICATIONS: The patient's home medications include glyburide, metformin, hydrochlorothiazide, lisinopril, zolpidem, atorvastatin, hydrocodone, and phenytoin. In the hospital, the patient has also been placed on Zosyn. He is also currently on cefepime and vancomycin as well as p.r.n. pain medication. PAST MEDICAL HISTORY: Diabetes, hyperglycemia, hypertension, seizure disorder, as well as obesity. PAST SURGICAL HISTORY: Incision and drainage of perineal abscess on 2 occasions over the last 10 months. He has also had ankle fracture surgery. 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 Morbidly obese. Smokes. Lives with his family. REVIEW OF SYSTEMS: He has no shortness of breath or chest pain. Appetite is good. He has no nausea, no vomiting. No constipation or diarrhea. No headaches, no dizziness, no nosebleeds. No joint pain, no swelling, limitation of movement, night sweats, fever, chills, or skin rash. He has difficulty walking, he says, however, but because of his perineal abscess. PHYSICAL EXAMINATION: GENERAL: This is an obese male. VITAL SIGNS: Temperature is 98. Blood pressure is 150/80 with a pulse of 82. NECK: Has no adenopathy or supraclavicular masses palpable. LUNGS: Lung rubio are clear to auscultation and percussion. HEART: Heart sounds are best heard in the fifth intercostal space on the left side. ABDOMEN: Morbidly obese. No masses. Nontender. BACK: Has no CVA tenderness. GENITALIA AND RECTAL: Phallus is free of lesions. Testicles are descended bilaterally, nontender. Perineum has a draining sinus at the site of his previous abscess drainage with some fluctuation around it. The patient's rectal examination is deferred. LABORATORY DATA: White count is 11, hematocrit is 44, platelet count is 270. Sodium is 131, potassium is 4.1, BUN and creatinine are 13 and 1.1, while his urinalysis is pending. IMAGING STUDIES: The patient's imaging studies include a scrotal ultrasound that shows scrotal wall thickening, normal testicles bilaterally. ASSESSMENT: * Recurrent incompletely treated perineal abscess. * Morbid obesity. * Leukocytosis. RECOMMENDATIONS: * Urinalysis and culture. * PT, PTT, INR. * N.p.o. after midnight tonight. * Noncontrast CT scan of the abdomen and pelvis stat. * Schedule for incision, drainage, and debridement as soon as possible of perineal abscess with placement of wound VAC. * Risks, benefits, alternatives, and potential complications of this procedure with absolute guarantees and also the risks of not proceeding with surgery were reviewed with the patient. His concerns answered. He did request the surgery and did provide fully informed consent. He will be scheduled to have this done as soon as possible. Thank you for the opportunity for providing consultation in Urology on your patient. Sincerely, TID: [id number] RECEIPT: [id number]
--- NOTE | 2025-10-09 07:50 | NUR ---
A.M. PO MEDICATIONS HELD PATIENT IS NPO FOR PROCEDURE SCHEDULED TODAY
--- NOTE | 2025-10-09 08:32 | NUR ---
SPOKE WITH OR TEAM REGARDING LOVENOX ADMINISTRATION PRIOR TO PROCEDURE. PER RECOMMENDATION OF ASHVIN BEDOLLA CRNA, LOVENOX IS TO BE HELD IN PREPARATION FOR PROCEDURE TODAY.
[2025-10-09] MEDS: VANCOMYCIN 1.75 GM/250 ML BAG 250 ML IV SCH (09:32)
[2025-10-09] MEDS ORDERED: MIDAZOLAM HCL 1 MG/ML 2ML VIAL ONE (10:00)
[2025-10-09] MEDS ORDERED: SUCCINYLCHOLINE CHLORIDE 20 MG/ML 10 ML VIAL ONE (10:40)
--- NOTE | 2025-10-09 11:27 | PN ---
INFECTIOUS DISEASE FOLLOWUP NOTE DATE OF SERVICE: 10/08/2025 SUBJECTIVE: The patient was seen and examined at bedside. No fever, no chills. No nausea or vomiting. right scortum and perineal area. No dysuria or hematuria. No rashes or itchiness. No bleeding tendency. No shortness of breath. PHYSICAL EXAMINATION: VITAL SIGNS: Temperature today is 99.5. EYES: No icterus. Pupils equal and reactive. HENT: No oral thrush seen. Moist oral mucosa. NECK: Supple. No JVD or thyromegaly. LUNGS: Good air entry. No rales, no rhonchi. CARDIOVASCULAR: S1, S2 regular. No murmur heard. ABDOMEN: Soft, nontender. Bowel sound is present. CENTRAL NERVOUS SYSTEM: Awake, alert, oriented x 3. No focal deficits. SKIN: No rashes. LYMPHATIC: No peripheral lymphadenopathy. BACK: No deformity, no pressure ulcer. MUSCULOSKELETAL: No joint swelling, erythema or tenderness. GENITOURINARY: Swelling and tenderness involving the right perineal and scortal area. ASSESSMENT: A 44-year-old male with . Current problems include, * Sepsis. * Right scortal/perineal abscess. * Nonketotic hyperglycinemia. * Morbid obesity. * Hypertension. * Diabetes mellitus. PLAN: * Continue pain management. * Followup cultures. * Continue antidiabetic. * Continue antibiotic. * Continue DVT prophylaxis. * Monitor electrolytes. * The patient will be followed up closely. TID: [id number] RECEIPT: [id number]
[2025-10-09] MEDS: SUGAMMADEX SODIUM 200 MG/2 ML VIAL IV ONE (11:46)
[2025-10-09] MEDS ORDERED: PROMETHAZINE HCL 25 MG/ML 1ML AMPULE IM PRN (12:00)
--- NOTE | 2025-10-09 13:07 | OP ---
DATE OF PROCEDURE: 10/09/2025 PREOPERATIVE DIAGNOSIS: Recurrent perineal abscess. PROCEDURES PERFORMED: * Incision, drainage and debridement of recurrent perineal abscess. * Wound VAC application. POSTOPERATIVE DIAGNOSIS: Is that of a 10 x 7 x 5 cm perineal abscess. SPECIMENS: Are those of abscess debridement, tissue, as well as culture and sensitivity of abscess content. DRAINS: Are those of a wound VAC device as well as a 16-Bulgarian Tavares catheter. COMPLICATIONS: None. INDICATION FOR PROCEDURE: This is a 44-year-old male, morbidly obese, diabetic with recurrent perineal abscess, scheduled for incision, drainage and debridement. All risks, benefits, alternatives, and potential complications of this procedure were carefully reviewed with the patient, concerns answered, he did request to proceed and did provide full informed consent. CT scan of the abdomen and pelvis confirms the presence of an abscess collection in the perineum and base of scrotum in the midline. The risks, benefits, alternatives, and potential complications of this procedure were carefully reviewed with the patient, his concerns were answered, he did request to proceed and did provide full informed consent FINDINGS: A 10 x 7 x 5 cm perineal abscess with seropurulent content sent for culture and sensitivity. DESCRIPTION OF PROCEDURE: The patient was duly identified. Informed consent was confirmed. Timeout was taken. He was then brought to the operating room and placed supine on the table. After adequate hemodynamic monitoring had been established by Anesthesiology, the patient underwent smooth induction of general anesthesia by Anesthesiology. Next, he was placed in the dorsal lithotomy position and genitalia were now thoroughly prepped and draped in the usual sterile fashion from umbilicus to mid thigh. A 16-Bulgarian Tavares catheter was placed and then over the most fluctuant area of the perineum in the midline, an incision was then made measuring about ultimately 10 cm and resulting in a defect that was about 7 cm wide. The contents were all evacuated. Seropurulent was sent for culture and necrotic material was sharply debrided. Hemostasis was secured completely. No active bleeding at the end of the procedure. Copious irrigation with Pulsavac was then performed and with antibiotic solution and then a wound VAC sponge was then placed in the abscess defect with the appropriate suction device. The sponge count, needle count and instrument count were all said to be correct at the end of the procedure. No complications. Awakened from anesthesia and was then transferred from operating room to recovery room in good stable and hemodynamically satisfactory condition with the wound VAC device documenting absence of any leaks whatsoever. No complications. Postoperatively, the patient will be monitored and followed by wound care service. TID: [id number] RECEIPT: [id number]
--- NOTE | 2025-10-09 13:50 | NUR ---
CEFEPIME ADMINISTERED LATER THAN ORDERED DUE TO PATIENT BEING IN PROCEDURE.
--- NOTE | 2025-10-09 15:53 | PN ---
INFECTIOUS DISEASE PROGRESS NOTE Date of Service: Oct 09, 2025 SUBJECTIVE: This 44-year-old male patient is being seen today at bedside. Patient is status post I&D and wound VAC placement to right scrotal peroneal. No fever no chills. Patient denies chest pain or shortness of breath. Patient is in no respiratory distress at this time. He does continue on vancomycin cefepime tolerating well. Denies any pain. Case management to refer patient to [facility]. PHYSICAL EXAM EYES: Anicteric. Pupils equal and reactive. HENT: No oral thrush seen, moist Oral mucosa NECK: Supple, no JVD or thyromegaly. LUNGS: Good air entry. No rales, no rhonchi. CARDIOVASCULAR: S1, S2 regular. No murmur heard. ABDOMEN: Soft, non tender, bowel sounds present, no organomegaly CENTRAL NERVOUS SYSTEM: Awake, alert, oriented x 3. No focal deficits. SKIN: No rashes, no swelling. LYMPHATICS: No peripheral lymphadenopathy MUSCULOSKELETAL: No joint swelling, erythema or tenderness. EXTREMITIES: No cyanosis or clubbing BACK: No deformity, no pressure ulcer. GENITOURINARY: Surgical incision with wound VAC in place Vital Sign (Last 12 Hours) 10/09/25 10/09/25 10/09/25 10/09/25 04:00 07:50 09:32 12:30 Temp 98.2 98.1 98.1 Pulse 87 81 99 Resp 20 18 19 B/P (MAP) 142/87 121/73 83/54 Pulse Ox 97 93 93 97 O2 Delivery Room Air Room Air Room Air* Nonrebreathing Mask O2 Flow Rate 0 10.0 FiO2 21 10/09/25 10/09/25 10/09/25 10/09/25 12:35 12:40 12:45 12:50 Temp 98.1 98.1 98.1 98.1 Pulse 87 89 85 89 Resp 18 20 20 20 B/P (MAP) 98/51 98/59 110/55 113/56 Pulse Ox 97 97 97 97 O2 Delivery Nonrebreathing Mask Nonrebreathing Mask Nasal Cannula Nasal Cannula O2 Flow Rate 10.0 10.0 3.0 3.0 FiO2 28 28 10/09/25 10/09/25 10/09/25 10/09/25 12:55 13:00 13:05 13:10 Temp 98.1 98.1 98.1 98.1 Pulse 89 85 89 86 Resp 20 15 15 15 B/P (MAP) 110/51 108/50 106/54 108/52 Pulse Ox 97 95 95 96 O2 Delivery Nasal Cannula Nasal Cannula Nasal Cannula Nasal Cannula O2 Flow Rate 3.0 3.0 3.0 3.0 FiO2 28 28 28 28 10/09/25 10/09/25 10/09/25 13:15 13:20 13:30 Temp 98.1 98.1 Pulse 86 87 85 Resp 15 15 B/P (MAP) 109/0 144/66 105/54 Pulse Ox 96 94 95 O2 Delivery Nasal Cannula Room Air Nasal Cannula O2 Flow Rate 3.0 3.0 FiO2 28 28 Intake & Output (last 24hrs) 10/08/25 10/08/25 10/09/25 15:00 23:00 07:00 Intake Total 200 ml 690 ml 715.0 ml Output Total 4200 ml 1850 ml 2000 ml Balance -4000 ml -1160 ml -1285.0 ml LABS: Laboratory: Test 10/09/25 15:39 10/09/25 07:02 10/09/25 04:47 10/08/25 04:45 Range/Units Whole Blood Glucose 236 H 70-110 MG/DL Vancomycin Level Trough 7.1 #L 10.0-20.0 UG/ML White Blood Count 6.6 4.8-10.8 K/uL Red Blood Count 4.26 L 4.50-6.20 MIL/uL Hemoglobin 14.2 14.0-18.0 g/dL Hematocrit 40.6 L 42-54 % Mean Corpuscular Volume 95.3 79-99 fL Mean Corpuscular Hemoglobin 33.3 H 27.0-33.0 pg Mean Corpuscular Hemoglobin Concent 35.0 32.0-36.0 g/dL Red Cell Distribution Width 12.7 11.0-15.5 % Platelet Count 218 130-400 K/uL Mean Platelet Volume 9.8 7.5-10.5 fL Nucleated Red Blood Cells 0.0 0.0-0.19 % Prothrombin Time 10.4 9.6-11.6 SEC Prothromb Time International Ratio 0.98 0.85-1.15 Activated Partial Thromboplast Time 26.4 26.3-35.5 SEC Sodium Level 138 136-145 mmol/L Potassium Level 4.4 3.5-5.1 mmol/L Chloride Level 101 101-111 mmol/L Carbon Dioxide Level 27 21-32 mmol/L Blood Urea Nitrogen 11 7-18 mg/dL Creatinine 0.7 0.5-1.3 mg/dL Glomerular Filtration Rate Calc 116 >90 mL/min Random Glucose 152 H 70-105 mg/dL Hemoglobin A1c 9.6 H 4.0-6.0 % Estimated Average Glucose (eAG) 229 H 70-126 mg/dL Total Calcium 9.4 8.5-10.1 mg/dL Magnesium Level 1.90 1.80-2.40 mg/dL Total Bilirubin 0.4 0.2-1.0 mg/dL Aspartate Amino Transf (AST/SGOT) 12 10-37 U/L Alanine Aminotransferase (ALT/SGPT) 20 12-78 U/L Alkaline Phosphatase 76 50-136 U/L Total Protein 6.4 6.0-8.3 g/dL Albumin 3.0 L 3.5-5.0 g/dL Test 10/07/25 21:10 10/07/25 20:00 10/07/25 17:26 10/07/25 16:35 Range/Units Urine Color COLORLESS YELLOW Urine Appearance CLEAR CLEAR Urine pH 5.5 5.0-8.0 Urine Specific [place] 1.036 H 1.001-1.031 Urine Protein NEGATIVE NEGATIVE mg/dL Urine Glucose (UA) >=1000 H NEGATIVE mg/dL Urine Ketones 10 H NEGATIVE mg/dL Urine Occult Blood NEGATIVE NEGATIVE Urine Nitrate NEGATIVE NEGATIVE Urine Bilirubin NEGATIVE NEGATIVE mg/dL Urine Urobilinogen 0.2 0.2-1.0 mg/dL Urine Leukocyte Esterase NEGATIVE NEGATIVE Tiffanie/uL Urine RBC 0-1 0-1 /HPF Urine WBC 0-1 0-1 /HPF Urine Bacteria None None Seen /HPF Lactic Acid Level 1.4 0.8-2.5 mmol/L Whole Blood Ketones Quantitative 0.4 0.0-0.6 mmol/L Immature Granulocyte % (Auto) 0.3 0-1 % Neutrophils (%) (Auto) 78.8 H 40.0-77.0 % Lymphocytes (%) (Auto) 13.9 L 21.0-51.0 % Monocytes (%) (Auto) 6.3 3.0-13.0 % Eosinophils (%) (Auto) 0.4 0.0-8.0 % Basophils (%) (Auto) 0.3 0.0-5.0 % Neutrophils # (Auto) 8.9 H 1.8-7.7 K/uL Lymphocytes # (Auto) 1.6 1.0-4.8 K/uL Monocytes # (Auto) 0.7 0.1-1.0 K/uL Eosinophils # (Auto) 0.04 0.00-0.70 K/uL Basophils # (Auto) 0.03 0.00-0.20 K/uL Absolute Immature Granulocyte (auto 0.03 0-1 K/uL ASSESSMENT: * Sepsis. * Right scortal/perineal abscess status post debridement with wound VAC placement * Nonketotic hyperglycinemia. * Morbid obesity. * Hypertension. * Diabetes mellitus. PLAN: * Continue pain management. * Followup cultures. * Continue antidiabetic. * Continue antibiotic. * Continue DVT prophylaxis. * Monitor electrolytes. * continue vancomycin as per pharmacy protocol * continue cefepime This case has been discussed with my supervising physician . The case has been discussed and agreed upon. PETER FLORIAN [facility] Oct 09, 2025 15:53
--- NOTE | 2025-10-09 18:48 | HMCIMG ---
EXAM: CR Chest, 2 View. CLINICAL HISTORY: PICC LINE INSERTED COMPARISON: None provided. FINDINGS: LUNGS: There is no mass, infiltrate, or acute pulmonary abnormality. PLEURAL SPACES: No evidence of pleural effusion or pneumothorax. MEDIASTINUM: The cardiomediastinal silhouette is within normal limits. BONES: No acute osseous abnormality. MISCELLANEOUS: Left PICC line junction proximal/middle third SVC IMPRESSION: Left PICC line junction proximal/middle third SVC /[place]
--- NOTE | 2025-10-09 20:00 | NUR ---
MEDS SHIFT ASSESSMENT DONE, PLEASE REFER TO CHART. PT CLAIMS OF PAINS TO SX SITE. MEDICATED WITH TYLENOL PO AND DUE MEDS ADMINISTERED, TOLERATED WELL. KEPT RESTED AND COMFORTABLE IN BED. CALL LIGHT WITHIN REACH. WILL RE-ASSESS PT.
--- NOTE | 2025-10-09 21:46 | NUR ---
PT CLAIMS THAT HE IS HAVING ADVERSE REACTION TO TRAMADOL AND DOES NOT WANT IT. PT REQUESTING STRONGER DOSE OF DILAUDID. CALLED DR GONZALEZ AND INFORMED OF PT'S WANTING MORE PAIN MEDS. NO ORDERS GIVEN BY . STATED TO KEEP PT ON SAME PAIN MEDS.
[2025-10-10] VITALS (7 sets, daily range): BP systolic 120–162; BP diastolic 72–95; PULSE 77–84; RESP 18–20; TEMP 97.5–98.6; O2SAT 98–99
[2025-10-10 03:44] LABS: IMMATURE GRANULOCYTE ABSOLUTE 0.02 K/uL (0-1); NUCLEATED RED BLOOD CELLS 0.0 % (0.0-0.19); PLATELET COUNT (AUTO) 218 K/uL (130-400); RED BLOOD CELL COUNT(AUTO) 4.04 MIL/uL (4.50-6.20); RED CELL DISTRIBUTION WIDTH 12.6 % (11.0-15.5); WHITE BLOOD COUNT (AUTO) 6.1 K/uL (4.8-10.8)
[2025-10-10 04:00] LABS: CREATININE 0.8 mg/dL (0.5-1.3); GLOMERULAR FILTR. RATE CALC 111.0 mL/min (>90); GLUCOSE,RANDOM 183.0 mg/dL (70-105); SODIUM SERUM 138.0 mmol/L (136-145); UREA NITROGEN, BLOOD 11.0 mg/dL (7-18)
--- NOTE | 2025-10-10 05:40 | NUR ---
ROUNDS PT SLEPT AT INTERVALS DURING THE SHIFT. KEPT RESTED AND COMFORTABLE IN BED. CALL LIGHT WITHIN REACH. FOR MORE CARE.
--- NOTE | 2025-10-10 09:36 | NUR ---
cm note per [place] rep at [facility] pt is still pending approval.
--- NOTE | 2025-10-10 14:06 | PN ---
INFECTIOUS DISEASE PROGRESS NOTE Date of Service: Oct 10, 2025 SUBJECTIVE: This is a 44-year-old male patient is s/p incision, drainage and debridement of the perineal abscess and wound VAC placement day # 1. Remains afebrile after the procedure and the WBC is 6.1. Patient will continue on vancomycin cefepime. Pain being controlled with Dilaudid.. Patient has been referred to [facility] and pending insurance authorization. PHYSICAL EXAM EYES: Anicteric. Pupils equal and reactive. HENT: No oral thrush seen, moist Oral mucosa NECK: Supple, no JVD or thyromegaly. LUNGS: Good air entry. No rales, no rhonchi. CARDIOVASCULAR: S1, S2 regular. No murmur heard. ABDOMEN: Soft, non tender, bowel sounds present. CENTRAL NERVOUS SYSTEM: Awake, alert, oriented x 3. SKIN: No rashes, no swelling. LYMPHATICS: No peripheral lymphadenopathy MUSCULOSKELETAL: No joint swelling, erythema or tenderness. EXTREMITIES: No cyanosis or clubbing BACK: No deformity, no pressure ulcer. GENITOURINARY: Perineal abscess, status post I&D with wound VAC in place Vital Sign (Last 12 Hours) 10/10/25 10/10/25 10/10/25 10/10/25 03:36 08:00 08:14 12:00 Temp 98.1 97.5 97.5 Pulse 83 80 77 Resp 18 20 20 B/P (MAP) 130/72 148/86 162/95 Pulse Ox 100 98 98 98 O2 Delivery Room Air Room Air Room Air* Room Air O2 Flow Rate 0 FiO2 21 21 Intake & Output (last 24hrs) 10/09/25 10/09/25 10/10/25 15:00 23:00 07:00 Intake Total 45.0 ml 2000.0 ml 970.0 ml Output Total 850 ml 2700 ml Balance -805.0 ml 2000.0 ml -1730.0 ml LABS: Laboratory: Test 10/10/25 11:20 10/10/25 03:20 10/09/25 07:02 10/09/25 04:47 Range/Units Whole Blood Glucose 179 H 70-110 MG/DL White Blood Count 6.1 4.8-10.8 K/uL Red Blood Count 4.04 L 4.50-6.20 MIL/uL Hemoglobin 13.1 L 14.0-18.0 g/dL Hematocrit 38.6 L 42-54 % Mean Corpuscular Volume 95.5 79-99 fL Mean Corpuscular Hemoglobin 32.4 27.0-33.0 pg Mean Corpuscular Hemoglobin Concent 33.9 32.0-36.0 g/dL Red Cell Distribution Width 12.6 11.0-15.5 % Platelet Count 218 130-400 K/uL Mean Platelet Volume 9.6 7.5-10.5 fL Immature Granulocyte % (Auto) 0.3 0-1 % Neutrophils (%) (Auto) 66.3 40.0-77.0 % Lymphocytes (%) (Auto) 22.0 21.0-51.0 % Monocytes (%) (Auto) 9.6 3.0-13.0 % Eosinophils (%) (Auto) 1.5 0.0-8.0 % Basophils (%) (Auto) 0.3 0.0-5.0 % Neutrophils # (Auto) 4.1 1.8-7.7 K/uL Lymphocytes # (Auto) 1.4 1.0-4.8 K/uL Monocytes # (Auto) 0.6 0.1-1.0 K/uL Eosinophils # (Auto) 0.09 0.00-0.70 K/uL Basophils # (Auto) 0.02 0.00-0.20 K/uL Absolute Immature Granulocyte (auto 0.02 0-1 K/uL Nucleated Red Blood Cells 0.0 0.0-0.19 % Sodium Level 138 136-145 mmol/L Potassium Level 4.3 3.5-5.1 mmol/L Chloride Level 102 101-111 mmol/L Carbon Dioxide Level 26 21-32 mmol/L Blood Urea Nitrogen 11 7-18 mg/dL Creatinine 0.8 0.5-1.3 mg/dL Glomerular Filtration Rate Calc 111 >90 mL/min Random Glucose 183 H 70-105 mg/dL Total Calcium 8.6 8.5-10.1 mg/dL Vancomycin Level Trough 7.1 #L 10.0-20.0 UG/ML Prothrombin Time 10.4 9.6-11.6 SEC Prothromb Time International Ratio 0.98 0.85-1.15 Activated Partial Thromboplast Time 26.4 26.3-35.5 SEC Hemoglobin A1c 9.6 H 4.0-6.0 % Estimated Average Glucose (eAG) 229 H 70-126 mg/dL Magnesium Level 1.90 1.80-2.40 mg/dL ASSESSMENT: Perineal abscess, s/p incision, drainage and debridement with wound VAC placement. Sepsis. Poorly controlled Diabetes mellitus, hemoglobin A1c 9.6. Morbid obesity. Seizure disorder. PLAN: Continue vancomycin per pharmacy protocol. Continue cefepime. Continue GI prophylaxis. Continue pain management. We will follow up on the cultures. Continue wound care, currently on wound VAC therapy. Continue anti diabetics. This case has been discussed with my supervising physician . The case has been discussed and agreed upon. ATTESTATION BY PHYSICIAN I have seen and examined the patient. I reviewed the documentation, medical decision making, and treatment plan as noted by the mid-level provider above. I agree with the findings and plan of care. ISRAEL GONZALEZ MD, [facility] Oct 10, 2025 14:06
[2025-10-11] VITALS (9 sets, daily range): BP systolic 109–142; BP diastolic 73–95; PULSE 78–90; RESP 18–20; TEMP 97.3–98.5; O2SAT 96
[2025-10-11 06:14] LABS: NUCLEATED RED BLOOD CELLS 0.0 % (0.0-0.19); PLATELET COUNT (AUTO) 220.0 K/uL (130-400); RED BLOOD CELL COUNT(AUTO) 4.08 MIL/uL (4.50-6.20); RED CELL DISTRIBUTION WIDTH 12.5 % (11.0-15.5); WHITE BLOOD COUNT (AUTO) 6.4 K/uL (4.8-10.8)
[2025-10-11 06:36] LABS: CREATININE 0.7 mg/dL (0.5-1.3); GLOMERULAR FILTR. RATE CALC 116.0 mL/min (>90); GLUCOSE,RANDOM 113.0 mg/dL (70-105); SODIUM SERUM 136.0 mmol/L (136-145); UREA NITROGEN, BLOOD 8.0 mg/dL (7-18)
[2025-10-11] MEDS: PoTASSium chloRIDE 20MEQ ER 20 MEQ ERTAB PO PRN (14:50)
[2025-10-11] MEDS ORDERED: PoTASSium chl 10% ELIXIR 20MEQ 20 MEQ/15 ML UDCUP PO PRN (15:00)
--- NOTE | 2025-10-11 22:03 | PN ---
INFECTIOUS DISEASE PROGRESS NOTE Date of Service: Oct 11, 2025 SUBJECTIVE: This is a 44-year-old male patient is s/p incision, drainage and debridement of the perineal abscess and wound VAC placement. Patient will continue on vancomycin and cefepime and we will follow up on the culture results. No fever, temperature is 97.3. Pending insurance approval to [facility]. PHYSICAL EXAM EYES: Anicteric. Pupils equal and reactive. HENT: No oral thrush seen, moist Oral mucosa NECK: Supple, no JVD or thyromegaly. LUNGS: Good air entry. No rales, no rhonchi. CARDIOVASCULAR: S1, S2 regular. No murmur heard. ABDOMEN: Soft, non tender, bowel sounds present. CENTRAL NERVOUS SYSTEM: Awake, alert, oriented x 3. SKIN: No rashes, no swelling. LYMPHATICS: No peripheral lymphadenopathy MUSCULOSKELETAL: No joint swelling, erythema or tenderness. EXTREMITIES: No cyanosis or clubbing BACK: No deformity, no pressure ulcer. GENITOURINARY: Perineal abscess, status post I&D with wound VAC in place Vital Sign (Last 12 Hours) 10/11/25 10/11/25 10/11/25 11:41 16:00 19:28 Temp 97.3 97.9 97.9 Pulse 85 85 90 Resp 18 18 18 B/P (MAP) 109/83 137/76 138/73 Pulse Ox 96 98 96 O2 Delivery Room Air Room Air Room Air Intake & Output (last 24hrs) 10/10/25 10/10/25 10/11/25 15:00 23:00 07:00 Intake Total 902.0 ml 2350.0 ml Output Total 1800 ml 3700 ml 1200 ml Balance -1800 ml -2798.0 ml 1150.0 ml LABS: Laboratory: Test 10/11/25 20:28 10/11/25 05:44 10/10/25 19:05 10/10/25 03:20 Range/Units Whole Blood Glucose 222 #H 70-110 MG/DL White Blood Count 6.4 4.8-10.8 K/uL Red Blood Count 4.08 L 4.50-6.20 MIL/uL Hemoglobin 13.5 L 14.0-18.0 g/dL Hematocrit 38.6 L 42-54 % Mean Corpuscular Volume 94.6 79-99 fL Mean Corpuscular Hemoglobin 33.1 H 27.0-33.0 pg Mean Corpuscular Hemoglobin Concent 35.0 32.0-36.0 g/dL Red Cell Distribution Width 12.5 11.0-15.5 % Platelet Count 220 130-400 K/uL Mean Platelet Volume 9.7 7.5-10.5 fL Nucleated Red Blood Cells 0.0 0.0-0.19 % Sodium Level 136 136-145 mmol/L Potassium Level 3.8 3.5-5.1 mmol/L Chloride Level 99 L 101-111 mmol/L Carbon Dioxide Level 24 21-32 mmol/L Blood Urea Nitrogen 8 7-18 mg/dL Creatinine 0.7 0.5-1.3 mg/dL Glomerular Filtration Rate Calc 116 >90 mL/min Random Glucose 113 H 70-105 mg/dL Total Calcium 8.9 8.5-10.1 mg/dL Magnesium Level 1.60 L 1.80-2.40 mg/dL Vancomycin Level Trough 12.0 # 10.0-20.0 UG/ML Immature Granulocyte % (Auto) 0.3 0-1 % Neutrophils (%) (Auto) 66.3 40.0-77.0 % Lymphocytes (%) (Auto) 22.0 21.0-51.0 % Monocytes (%) (Auto) 9.6 3.0-13.0 % Eosinophils (%) (Auto) 1.5 0.0-8.0 % Basophils (%) (Auto) 0.3 0.0-5.0 % Neutrophils # (Auto) 4.1 1.8-7.7 K/uL Lymphocytes # (Auto) 1.4 1.0-4.8 K/uL Monocytes # (Auto) 0.6 0.1-1.0 K/uL Eosinophils # (Auto) 0.09 0.00-0.70 K/uL Basophils # (Auto) 0.02 0.00-0.20 K/uL Absolute Immature Granulocyte (auto 0.02 0-1 K/uL ASSESSMENT: Perineal abscess, s/p incision, drainage and debridement with wound VAC placement. Sepsis. Poorly controlled Diabetes mellitus, hemoglobin A1c 9.6. Morbid obesity. Seizure disorder. PLAN: Continue vancomycin per pharmacy protocol. Continue cefepime. Continue GI prophylaxis. Continue pain management. We will follow up on the cultures results. Continue wound care, currently on wound VAC therapy. Continue antidiabetics. Pending insurance approval to [facility]. This case has been discussed with my supervising physician . The case has been discussed and agreed upon. ATTESTATION BY PHYSICIAN I have seen and examined the patient. I reviewed the documentation, medical decision making, and treatment plan as noted by the mid-level provider above. I agree with the findings and plan of care. ISRAEL GONZALEZ MD, [facility] Oct 11, 2025 22:03
[2025-10-12 04:10] VITALS: BP 111/60; PULSE 83; RESP 18; TEMP 97.8
[2025-10-12 06:21] LABS: NUCLEATED RED BLOOD CELLS 0.0 % (0.0-0.19); PLATELET COUNT (AUTO) 204.0 K/uL (130-400); RED BLOOD CELL COUNT(AUTO) 3.76 MIL/uL (4.50-6.20); RED CELL DISTRIBUTION WIDTH 12.4 % (11.0-15.5); WHITE BLOOD COUNT (AUTO) 6.0 K/uL (4.8-10.8)
[2025-10-12 06:47] LABS: CREATININE 0.6 mg/dL (0.5-1.3); GLOMERULAR FILTR. RATE CALC 121.0 mL/min (>90); GLUCOSE,RANDOM 133.0 mg/dL (70-105); SODIUM SERUM 138.0 mmol/L (136-145); UREA NITROGEN, BLOOD 8.0 mg/dL (7-18)
[2025-10-12 08:00] VITALS: BP 134/78; PULSE 88; RESP 19; TEMP 98.2; O2SAT 99
[2025-10-12 11:47] VITALS: BP 141/104; PULSE 99; RESP 18; TEMP 97.6
--- NOTE | 2025-10-12 12:52 | NUR ---
NURSING NOTE SPOKE TO DR GARVEY OFFICE REGARDING ZHU, PENDING CALLBACK FROM DR GARVEY NURSE.
[2025-10-12 16:00] VITALS: BP 122/77; PULSE 91; RESP 18; TEMP 98.6
--- NOTE | 2025-10-12 16:30 | NUR ---
[facility] Consult: Patient assessed by wound healing team. See wound assessment. Assessment and recommendations provided to primary nurse. Education provided to patient r/t to wound, treatment, and wound vac management. Wound vac placed.
[2025-10-12 20:00] VITALS: BP 127/73; PULSE 94; RESP 24; TEMP 98.1; O2SAT 100
--- NOTE | 2025-10-12 20:59 | PN ---
INFECTIOUS DISEASE PROGRESS NOTE Date of Service: Oct 12, 2025 SUBJECTIVE: This is a 44-year-old male patient is s/p incision, drainage and debridement of the perineal abscess and wound VAC placement. The wound VAC is scheduled to be changed today. We will premedicate patient with morphine 1 mg IV x1. The scrotal swelling has decreased. No growth reported yet on the wound culture results for 47 hours. We will continue on vancomycin and cefepime. Continues pending insurance approval to [facility]. PHYSICAL EXAM EYES: Anicteric. Pupils equal and reactive. HENT: No oral thrush seen, moist Oral mucosa NECK: Supple, no JVD or thyromegaly. LUNGS: Good air entry. No rales, no rhonchi. CARDIOVASCULAR: S1, S2 regular. No murmur heard. ABDOMEN: Soft, non tender, bowel sounds present. CENTRAL NERVOUS SYSTEM: Awake, alert, oriented x 3. SKIN: No rashes, no swelling. LYMPHATICS: No peripheral lymphadenopathy MUSCULOSKELETAL: No joint swelling, erythema or tenderness. EXTREMITIES: No cyanosis or clubbing BACK: No deformity, no pressure ulcer. GENITOURINARY: Perineal abscess, status post I&D with wound VAC in place Vital Sign (Last 12 Hours) 10/12/25 10/12/25 11:47 16:00 Temp 97.5 98.6 Pulse 99 91 Resp 18 18 B/P (MAP) 141/104 122/77 Pulse Ox 98 96 O2 Delivery Room Air Room Air Intake & Output (last 24hrs) 10/11/25 10/11/25 10/12/25 15:00 23:00 07:00 Intake Total 630.0 ml 30 ml Output Total 4800 ml 3500 ml Balance -4170.0 ml -3470 ml LABS: Laboratory: Test 10/12/25 19:58 10/12/25 19:15 10/12/25 06:11 Range/Units Whole Blood Glucose 145 H 70-110 MG/DL Vancomycin Level Trough 11.4 10.0-20.0 UG/ML White Blood Count 6.0 4.8-10.8 K/uL Red Blood Count 3.76 L 4.50-6.20 MIL/uL Hemoglobin 12.4 L 14.0-18.0 g/dL Hematocrit 35.8 L 42-54 % Mean Corpuscular Volume 95.2 79-99 fL Mean Corpuscular Hemoglobin 33.0 27.0-33.0 pg Mean Corpuscular Hemoglobin Concent 34.6 32.0-36.0 g/dL Red Cell Distribution Width 12.4 11.0-15.5 % Platelet Count 204 130-400 K/uL Mean Platelet Volume 9.7 7.5-10.5 fL Nucleated Red Blood Cells 0.0 0.0-0.19 % Sodium Level 138 136-145 mmol/L Potassium Level 4.0 3.5-5.1 mmol/L Chloride Level 102 101-111 mmol/L Carbon Dioxide Level 25 21-32 mmol/L Blood Urea Nitrogen 8 7-18 mg/dL Creatinine 0.6 0.5-1.3 mg/dL Glomerular Filtration Rate Calc 121 >90 mL/min Random Glucose 133 H 70-105 mg/dL Total Calcium 8.3 L 8.5-10.1 mg/dL Magnesium Level 1.60 L 1.80-2.40 mg/dL DIAGNOSIS LAST RADIOLOGY: PATIENT: MEJIA AMANDA ACCT: [id number] LOC: [facility] U: [id number] AGE/SX: 44/M ROOM: [facility] RE10/07/[address]: ISRAEL GONZALEZ MD : 1980 BED: 1 DIS: STATUS: ADM IN TLOC: SPEC: [id number] ELOINA: 10/09/25 STATUS: RES REQ: [id number] RECD: 10/10/[address]: ISRAEL GONZALEZ MD SOURCE: OTHER SOUR ENTR: 10/10/[address] [facility] [address]: MIKE GARVEY MD SPDESC: OTHER RAMÍREZ ALVAREZ MD, RICARDO A MD RODRIGUEZ,ILIR RODRIGUEZ MD ORDERED: AEROBIC CULTURE COMMENTS: PERINEAL ABSCESS SCROTAL COLLECTED BY DR GARVYE;REORDERED BY MISSION REQUEST;DID NOT CROSS OVER PERINEAL ABSCESS SCROTAL COLLECTED BY DR GARVEY;REORDERED BY MISSION REQUEST;DID NOT CROSS OVER PERINEAL ABSCESS SCROTAL COLLECTED BY DR GARVEY;REORDERED BY MISSION REQUEST;DID NOT CROSS OVER Procedure Result Primo Date-Time AEROBIC CULTURE Preliminary 10/12/25-1140 MRL COLONY DESCRIPTION: REPORT 1: NO GROWTH AT 16-23 HOURS; STUDIES TO CONTINUE REPORT 2: NO GROWTH AT 36-47 HOURS; STUDIES TO CONTINUE ASSESSMENT: Perineal abscess, s/p incision, drainage and debridement with wound VAC placement. Sepsis. Poorly controlled Diabetes mellitus, hemoglobin A1c 9.6. Morbid obesity. Seizure disorder. PLAN: Continue vancomycin per pharmacy protocol. Continue cefepime. Continue GI prophylaxis. Continue pain management. We will follow up on the cultures results. Continue wound care, currently on wound VAC therapy. Continue antidiabetics. Pending insurance approval to [facility]. Give morphine 1 mg IV x1 prior to wound VAC dressing change. This case has been discussed with my supervising physician . The case has been discussed and agreed upon. ATTESTATION BY PHYSICIAN I have seen and examined the patient. I reviewed the documentation, medical decision making, and treatment plan as noted by the mid-level provider above. I agree with the findings and plan of care. ISRAEL GONZALEZ MD, MIRTA L [facility] Oct 12, 2025 20:59
[2025-10-13] VITALS (7 sets, daily range): BP systolic 128–149; BP diastolic 59–99; PULSE 79–98; RESP 18–24; TEMP 97.3–98.1; O2SAT 97
[2025-10-13 06:09] LABS: NUCLEATED RED BLOOD CELLS 0.0 % (0.0-0.19); PLATELET COUNT (AUTO) 254.0 K/uL (130-400); RED BLOOD CELL COUNT(AUTO) 4.0 MIL/uL (4.50-6.20); RED CELL DISTRIBUTION WIDTH 12.4 % (11.0-15.5); WHITE BLOOD COUNT (AUTO) 6.0 K/uL (4.8-10.8)
[2025-10-13 06:18] LABS: CREATININE 0.6 mg/dL (0.5-1.3); GLOMERULAR FILTR. RATE CALC 121.0 mL/min (>90); GLUCOSE,RANDOM 140.0 mg/dL (70-105); SODIUM SERUM 139.0 mmol/L (136-145); UREA NITROGEN, BLOOD 8.0 mg/dL (7-18)
[2025-10-13] MEDS: TIRZEPATIDE SQ SCH (09:00)
--- NOTE | 2025-10-13 17:07 | CONS ---
CONSULTATION NOTE Date of Service: Oct 13, 2025 Reason for Consultation: [ wound vac management ] Requesting Physician: [ Dr. Fernandez] HISTORY OF PRESENT ILLNESS: The patient is evaluated at bedside in room 313 for wound care evaluation. This is a 44-year-old male with a history of poorly controlled diabetes mellitus, hypertension, obesity, depression, and seizure disorder, presented with scrotal pain and swelling. The patient claims swelling has been going on for about 4 days prior to admission and noticed some fever and chills, decided to come to the Emergency Room. In the ER, the patient was found with a blood glucose of 409. Lactic acid elevated at 2.6. WBC also elevated at 11.4. Patient had Incision, drainage and debridement of recurrent perineal abscess and Wound VAC application by Dr Fernandez on 10/09/25. REVIEW OF SYSTEMS CONSTITUTIONAL: Denies fever, chills, or fatigue. HEAD/FACE: No signs of trauma. EENT: Denies eye pain, blurred vision, double vision, or light sensitivity. RESPIRATORY: Denies shortness of breath, cough, wheezing CARDIOVASCULAR: Denies chest pain, palpitation, syncope GASTROINTESTINAL/ABDOMINAL: Denies abdominal pain, constipation, diarrhea, nausea or vomiting GENITOURINARY: Denies dysuria or hematuria. MUSCULOSKELETAL: Denies joint pain, tenderness, or trauma. INTEGUMENTARY: scrotal abscess NEUROLOGICAL/PSYCH: Denies anxiety, depression, heat or cold intolerance. PAST MEDICAL HISTORY: * Diabetes mellitus. * Obesity. * Perineal abscess. * Seizure disorder. * BPH. * Hypertension. PAST SURGICAL HISTORY: * Right ankle surgery. * Left ankle surgery. * Incision and drainage of perineal abscess. ALLERGIES: * TORADOL. * LYRICA. HOME MEDICATIONS: Reviewed. SOCIAL HISTORY: No alcohol or tobacco or illicit drug use. FAMILY HISTORY: Positive for diabetes mellitus. Coded Allergies: ketorolac (Unverified Allergy, Mild, 09/09/15) pregabalin (Unverified Allergy, Unknown, SEIZURES, 09/07/15) PHYSICAL EXAM EYES: Anicteric. Pupils equal and reactive. HENT: No oral thrush seen, moist Oral mucosa NECK: Supple, no JVD or thyromegaly. LUNGS: Good air entry. No rales, no rhonchi. CARDIOVASCULAR: S1, S2 regular. No murmur heard. ABDOMEN: Soft, non tender, bowel sounds present, no organomegaly CENTRAL NERVOUS SYSTEM: Awake, alert, oriented x 3. No focal deficits. SKIN: No rashes, no swelling. LYMPHATICS: No peripheral lymphadenopathy MUSCULOSKELETAL: No joint swelling, erythema or tenderness. EXTREMITIES: No cyanosis or clubbing BACK: No deformity, no pressure ulcer. GENITOURINARY: Right perineal surgical wound noted with granulation with serous drainage and periwound erythema, Tavares cath in place. Vital Sign (Last 24 Hours) 10/12/25 10/13/25 20:00 16:00 Temp 98.1 Pulse 98 Resp 18 B/P (MAP) 138/59 Pulse Ox 98 O2 Delivery Room Air O2 Flow Rate 0 FiO2 21 Intake & Output (last 24hrs) 10/12/25 10/12/25 10/13/25 15:00 23:00 07:00 Intake Total 1800 ml Output Total 2800 ml 3050 ml Balance -1000 ml -3050 ml LABS: Laboratory: Test 10/13/25 15:41 10/13/25 05:42 10/12/25 19:15 Range/Units Whole Blood Glucose 112 H 70-110 MG/DL White Blood Count 6.0 4.8-10.8 K/uL Red Blood Count 4.00 L 4.50-6.20 MIL/uL Hemoglobin 13.2 L 14.0-18.0 g/dL Hematocrit 37.5 L 42-54 % Mean Corpuscular Volume 93.8 79-99 fL Mean Corpuscular Hemoglobin 33.0 27.0-33.0 pg Mean Corpuscular Hemoglobin Concent 35.2 32.0-36.0 g/dL Red Cell Distribution Width 12.4 11.0-15.5 % Platelet Count 254 130-400 K/uL Mean Platelet Volume 9.9 7.5-10.5 fL Nucleated Red Blood Cells 0.0 0.0-0.19 % Sodium Level 139 136-145 mmol/L Potassium Level 3.9 3.5-5.1 mmol/L Chloride Level 104 101-111 mmol/L Carbon Dioxide Level 25 21-32 mmol/L Blood Urea Nitrogen 8 7-18 mg/dL Creatinine 0.6 0.5-1.3 mg/dL Glomerular Filtration Rate Calc 121 >90 mL/min Random Glucose 140 H 70-105 mg/dL Total Calcium 8.2 L 8.5-10.1 mg/dL Magnesium Level 1.70 L 1.80-2.40 mg/dL Vancomycin Level Trough 11.4 10.0-20.0 UG/ML DIAGNOSTICS / RADIOLOGY: [ ] PROBLEM LIST : Medical Problems: Scrotal wall abscess Sepsis Uncontrolled diabetes mellitus Unspecified open wound of external genital organs, male, initial encounter Disruption of external operation wound, not elsewhere classified, initial encounter PLAN: Wound care to Perineal surgical wound: Cleanse with normal saline, pat dry, apply adaptic/Vaseline gauze to bone/tendon, fill with black foam, cover with drape connect to wound vac at 125mmhg/ continuous. Change 2 x week. Q M-Neetu and as needed Keep wounds clean and dry Offloading/reposition q 2 hours Continue IV antibiotics per ID Comorbidities per primary care team Further Management per hospital course. Thank You for the consult and allowing us to participate in the care of this patient. ATTESTATION BY PHYSICIAN I have seen and examined the patient. I reviewed the documentation, medical decision making, and treatment plan as noted by the mid-level provider above. I agree with the findings and plan of care. ILIR AMANDA MD, MICHELLE A [facility] Oct 13, 2025 17:06 ILIR AMANDA MD Oct 16, 2025 13:27
--- NOTE | 2025-10-13 20:02 | PN ---
INFECTIOUS DISEASE PROGRESS NOTE Date of Service: Oct 13, 2025 SUBJECTIVE: This is a 44-year-old male patient who was seen and examined at bedside in room 313. Patient is s/p incision, drainage and debridement of the perineal abscess and wound VAC placement on 10/09/2025. The wound VAC was changed yesterday. No fever today. No growth reported on the final wound culture results. We will continue on vancomycin and cefepime. Pending insurance approval to [facility]. PHYSICAL EXAM EYES: Anicteric. Pupils equal and reactive. HENT: No oral thrush seen, moist Oral mucosa NECK: Supple, no JVD or thyromegaly. LUNGS: Good air entry. No rales, no rhonchi. CARDIOVASCULAR: S1, S2 regular. No murmur heard. ABDOMEN: Soft, non tender, bowel sounds present. CENTRAL NERVOUS SYSTEM: Awake, alert, oriented x 3. SKIN: No rashes, no swelling. LYMPHATICS: No peripheral lymphadenopathy MUSCULOSKELETAL: No joint swelling, erythema or tenderness. EXTREMITIES: No cyanosis or clubbing BACK: No deformity, no pressure ulcer. GENITOURINARY: Perineal abscess, status post I&D with wound VAC in place Vital Sign (Last 12 Hours) 10/13/25 10/13/25 10/13/25 08:00 11:48 16:00 Temp 97.9 97.9 98.1 Pulse 83 79 98 Resp 19 20 18 B/P (MAP) 149/79 136/75 138/59 Pulse Ox 97 100 98 O2 Delivery Room Air Room Air Room Air Intake & Output (last 24hrs) 10/12/25 10/12/25 10/13/25 15:00 23:00 07:00 Intake Total 1800 ml Output Total 2800 ml 3050 ml Balance -1000 ml -3050 ml LABS: Laboratory: Test 10/13/25 15:41 10/13/25 05:42 10/12/25 19:15 Range/Units Whole Blood Glucose 112 H 70-110 MG/DL White Blood Count 6.0 4.8-10.8 K/uL Red Blood Count 4.00 L 4.50-6.20 MIL/uL Hemoglobin 13.2 L 14.0-18.0 g/dL Hematocrit 37.5 L 42-54 % Mean Corpuscular Volume 93.8 79-99 fL Mean Corpuscular Hemoglobin 33.0 27.0-33.0 pg Mean Corpuscular Hemoglobin Concent 35.2 32.0-36.0 g/dL Red Cell Distribution Width 12.4 11.0-15.5 % Platelet Count 254 130-400 K/uL Mean Platelet Volume 9.9 7.5-10.5 fL Nucleated Red Blood Cells 0.0 0.0-0.19 % Sodium Level 139 136-145 mmol/L Potassium Level 3.9 3.5-5.1 mmol/L Chloride Level 104 101-111 mmol/L Carbon Dioxide Level 25 21-32 mmol/L Blood Urea Nitrogen 8 7-18 mg/dL Creatinine 0.6 0.5-1.3 mg/dL Glomerular Filtration Rate Calc 121 >90 mL/min Random Glucose 140 H 70-105 mg/dL Total Calcium 8.2 L 8.5-10.1 mg/dL Magnesium Level 1.70 L 1.80-2.40 mg/dL Vancomycin Level Trough 11.4 10.0-20.0 UG/ML DIAGNOSIS LAST RADIOLOGY: PATIENT: MEJIA AMANDA ACCT: [id number] LOC: [facility] U: [id number] AGE/SX: 44/M ROOM: [facility] RE10/07/[address]: ISRAEL GONZALEZ MD : 1980 BED: 1 DIS: STATUS: ADM IN TLOC: SPEC: [id number] ELOINA: 10/09/25 STATUS: RES REQ: [id number] RECD: 10/10/[address]: ISRAEL GONZALEZ MD SOURCE: OTHER SOUR ENTR: 10/10/[address]: MIKE GARVEY MD SPDESC: OTHER RAMÍREZ ALVAREZ MD, RICARDO A MD RODRIGUEZ,ILIR RODRIGUEZ MD ORDERED: AEROBIC CULTURE COMMENTS: PERINEAL ABSCESS SCROTAL COLLECTED BY DR GARVEY;REORDERED BY MISSION REQUEST;DID NOT CROSS OVER PERINEAL ABSCESS SCROTAL COLLECTED BY DR GARVEY;REORDERED BY MISSION REQUEST;DID NOT CROSS OVER PERINEAL ABSCESS SCROTAL COLLECTED BY DR GARVEY;REORDERED BY MISSION REQUEST;DID NOT CROSS OVER Procedure Result Primo Date-Time AEROBIC CULTURE Preliminary 10/12/25-1140 MRL COLONY DESCRIPTION: REPORT 1: NO GROWTH AT 16-23 HOURS; STUDIES TO CONTINUE REPORT 2: NO GROWTH AT 36-47 HOURS; STUDIES TO CONTINUE ASSESSMENT: Perineal abscess, s/p incision, drainage and debridement with wound VAC placement on 10/09/2025. Sepsis. Poorly controlled Diabetes mellitus, hemoglobin A1c 9.6. Morbid obesity. Seizure disorder. PLAN: Continue vancomycin per pharmacy protocol. Continue cefepime. Continue GI prophylaxis. Continue pain management. Continue wound care, currently on wound VAC therapy. Continue antidiabetics. Pending insurance approval to [facility]. This case has been discussed with my supervising physician . The case has been discussed and agreed upon. ATTESTATION BY PHYSICIAN I have seen and examined the patient. I reviewed the documentation, medical decision making, and treatment plan as noted by the mid-level provider above. I agree with the findings and plan of care. ISRAEL GONZALEZ MD, MIRTA L [facility] Oct 13, 2025 20:02
[2025-10-14] VITALS (8 sets, daily range): BP systolic 109–153; BP diastolic 66–105; PULSE 78–97; RESP 16–18; TEMP 97.5–98; O2SAT 94–95
--- NOTE | 2025-10-14 01:41 | NUR ---
ABDOMEN PAIN PT HAD COMPLAINTS OF ABDOMINAL PAIN. UPON BLADDER SCAN SHOWED 772 ML OF URINE RETENTION WITH ZHU INSERTED. ZHU WAS REMOVED AT 0140 WITH PT VOIDING 800 ML OF URINE.
--- NOTE | 2025-10-14 04:05 | NUR ---
Wound vac reading air leak detected, several measures attempted to seal leak, unsuccessful, wound vac dc'd @ this time along with foam dressing; will apply wet/dry dressing in the meantime.
--- NOTE | 2025-10-14 17:24 | PN ---
PROGRESS NOTE Date of Service: Oct 14, 2025 Time of Service: 17:24 SUBJECTIVE: [ ] REVIEW OF SYSTEMS CONSTITUTIONAL: Denies fever, chills, or fatigue. HEAD/FACE: No signs of trauma. EENT: Denies eye pain, blurred vision, double vision, or light sensitivity. RESPIRATORY: Denies shortness of breath, cough, wheezing CARDIOVASCULAR: Denies chest pain, palpitation, syncope GASTROINTESTINAL/ABDOMINAL: Denies abdominal pain, constipation, diarrhea, nausea or vomiting GENITOURINARY: Denies dysuria or hematuria. MUSCULOSKELETAL: Denies joint pain, tenderness, or trauma. INTEGUMENTARY: scrotal abscess NEUROLOGICAL/PSYCH: Denies anxiety, depression, heat or cold intolerance. PHYSICAL EXAM EYES: Anicteric. Pupils equal and reactive. HENT: No oral thrush seen, moist Oral mucosa NECK: Supple, no JVD or thyromegaly. LUNGS: Good air entry. No rales, no rhonchi. CARDIOVASCULAR: S1, S2 regular. No murmur heard. ABDOMEN: Soft, non tender, bowel sounds present, no organomegaly CENTRAL NERVOUS SYSTEM: Awake, alert, oriented x 3. No focal deficits. SKIN: No rashes, no swelling. LYMPHATICS: No peripheral lymphadenopathy MUSCULOSKELETAL: No joint swelling, erythema or tenderness. EXTREMITIES: No cyanosis or clubbing BACK: No deformity, no pressure ulcer. GENITOURINARY: Right perineal surgical wound noted with granulation with serous drainage and periwound erythema, Tavares cath in place. Vital Signs (last 8hr) Date Time Temp Pulse Resp B/P (MAP) Pulse Ox O2 Delivery O2 Flow Rate FiO2 10/14/25 15:43 98.1 90 18 127/71 96 Room Air 10/14/25 11:42 94 Room Air* 0 21 10/14/25 11:23 98.1 82 18 130/74 94 Room Air LABS: Laboratory: Test 10/14/25 15:20 10/13/25 05:42 10/12/25 19:15 Range/Units Whole Blood Glucose 132 H 70-110 MG/DL White Blood Count 6.0 4.8-10.8 K/uL Red Blood Count 4.00 L 4.50-6.20 MIL/uL Hemoglobin 13.2 L 14.0-18.0 g/dL Hematocrit 37.5 L 42-54 % Mean Corpuscular Volume 93.8 79-99 fL Mean Corpuscular Hemoglobin 33.0 27.0-33.0 pg Mean Corpuscular Hemoglobin Concent 35.2 32.0-36.0 g/dL Red Cell Distribution Width 12.4 11.0-15.5 % Platelet Count 254 130-400 K/uL Mean Platelet Volume 9.9 7.5-10.5 fL Nucleated Red Blood Cells 0.0 0.0-0.19 % Sodium Level 139 136-145 mmol/L Potassium Level 3.9 3.5-5.1 mmol/L Chloride Level 104 101-111 mmol/L Carbon Dioxide Level 25 21-32 mmol/L Blood Urea Nitrogen 8 7-18 mg/dL Creatinine 0.6 0.5-1.3 mg/dL Glomerular Filtration Rate Calc 121 >90 mL/min Random Glucose 140 H 70-105 mg/dL Total Calcium 8.2 L 8.5-10.1 mg/dL Magnesium Level 1.70 L 1.80-2.40 mg/dL Vancomycin Level Trough 11.4 10.0-20.0 UG/ML DIAGNOSTICS / RADIOLOGY: [ ] PROBLEM LIST : Medical Problems: Scrotal wall abscess Sepsis Uncontrolled diabetes mellitus Unspecified open wound of external genital organs, male, initial encounter Disruption of external operation wound, not elsewhere classified, initial encounter PLAN: Wound care to Perineal surgical wound: Cleanse with normal saline, pat dry, apply adaptic/Vaseline gauze to bone/tendon, fill with black foam, cover with drape connect to wound vac at 125mmhg/ continuous. Change 2 x week. Q M-Neetu and as needed Keep wounds clean and dry Offloading/reposition q 2 hours Continue IV antibiotics per ID Comorbidities per primary care team Further Management per hospital course. Thank You for the consult and allowing us to participate in the care of this patient. MARKO EVANS Oct 14, 2025 17:24
--- NOTE | 2025-10-14 18:50 | PN ---
INFECTIOUS DISEASE PROGRESS NOTE Date of Service: Oct 14, 2025 SUBJECTIVE: Patient was seen and examined at bedside in room 313. Patient is s/p incision, drainage and debridement of the perineal abscess on 10/09/2025. Apparently the wound VAC has been off since last night due to was having a leak and is scheduled to be reapply today. Continues afebrile. We will continue on vancomycin and cefepime. PHYSICAL EXAM EYES: Anicteric. Pupils equal and reactive. HENT: No oral thrush seen, moist Oral mucosa NECK: Supple, no JVD or thyromegaly. LUNGS: Good air entry. No rales, no rhonchi. CARDIOVASCULAR: S1, S2 regular. No murmur heard. ABDOMEN: Soft, non tender, bowel sounds present. CENTRAL NERVOUS SYSTEM: Awake, alert, oriented x 3. SKIN: No rashes, no swelling. LYMPHATICS: No peripheral lymphadenopathy MUSCULOSKELETAL: No joint swelling, erythema or tenderness. EXTREMITIES: No cyanosis or clubbing BACK: No deformity, no pressure ulcer. GENITOURINARY: Perineal abscess, status post I&D with wound VAC in place Vital Sign (Last 12 Hours) 10/14/25 10/14/25 10/14/25 10/14/25 07:46 11:23 11:42 15:43 Temp 97.9 98.1 98.1 Pulse 84 82 90 Resp 18 18 18 B/P (MAP) 138/68 130/74 127/71 Pulse Ox 99 94 94 96 O2 Delivery Room Air Room Air Room Air* Room Air O2 Flow Rate 0 FiO2 21 Intake & Output (last 24hrs) 10/13/25 10/13/25 10/14/25 15:00 23:00 07:00 Intake Total 3750.0 ml 1220.0 ml Output Total 4300 ml 3150 ml Balance -550.0 ml -1930.0 ml LABS: Laboratory: Test 10/14/25 15:20 10/13/25 05:42 10/12/25 19:15 Range/Units Whole Blood Glucose 132 H 70-110 MG/DL White Blood Count 6.0 4.8-10.8 K/uL Red Blood Count 4.00 L 4.50-6.20 MIL/uL Hemoglobin 13.2 L 14.0-18.0 g/dL Hematocrit 37.5 L 42-54 % Mean Corpuscular Volume 93.8 79-99 fL Mean Corpuscular Hemoglobin 33.0 27.0-33.0 pg Mean Corpuscular Hemoglobin Concent 35.2 32.0-36.0 g/dL Red Cell Distribution Width 12.4 11.0-15.5 % Platelet Count 254 130-400 K/uL Mean Platelet Volume 9.9 7.5-10.5 fL Nucleated Red Blood Cells 0.0 0.0-0.19 % Sodium Level 139 136-145 mmol/L Potassium Level 3.9 3.5-5.1 mmol/L Chloride Level 104 101-111 mmol/L Carbon Dioxide Level 25 21-32 mmol/L Blood Urea Nitrogen 8 7-18 mg/dL Creatinine 0.6 0.5-1.3 mg/dL Glomerular Filtration Rate Calc 121 >90 mL/min Random Glucose 140 H 70-105 mg/dL Total Calcium 8.2 L 8.5-10.1 mg/dL Magnesium Level 1.70 L 1.80-2.40 mg/dL Vancomycin Level Trough 11.4 10.0-20.0 UG/ML ASSESSMENT: Perineal abscess, s/p incision, drainage and debridement with wound VAC placement on 10/09/2025. Sepsis. Poorly controlled Diabetes mellitus, hemoglobin A1c 9.6. Morbid obesity. Seizure disorder. PLAN: Continue vancomycin per pharmacy protocol. Continue cefepime. Continue GI prophylaxis. Continue pain management. Continue antidiabetics. Pending insurance approval to [facility]. Scheduled for wound VAC re-application today. This case has been discussed with my supervising physician . The case has been discussed and agreed upon. ATTESTATION BY PHYSICIAN I have seen and examined the patient. I reviewed the documentation, medical decision making, and treatment plan as noted by the mid-level provider above. I agree with the findings and plan of care. ISRAEL GONZALEZ MD, MIRTA L [facility] Oct 14, 2025 18:50
[2025-10-15] VITALS (9 sets, daily range): BP systolic 106–146; BP diastolic 74–97; PULSE 82–102; RESP 14–19; TEMP 97.6–98.2; O2SAT 93–95
--- NOTE | 2025-10-15 03:33 | NUR ---
nurse note patient alert and oriented times 4. plan of care discussed with him and he verbalized understanding. patient is ambulatory to the restroom without issues. he has scrotal pain tonight. I took pictures of his scrotal wound and cleaned it with ns, pat dry, applied wet to dry dressing with vashe and medipore tape. The patient kept picking at his dressing with his fingers. I instructed him not to touch his dressing or wound due to entrance of more bacteria. He verbalized understanding, but is not compliant. The patient verbalizes severe intermittent scrotal pain relieved by dilaudid. picc line dressing changed. patient has slept for about 5 hours. call light within reach, bed alarm on, 2 side rails up. will continue to monitor patient.
[2025-10-15 06:07] LABS: NUCLEATED RED BLOOD CELLS 0.0 % (0.0-0.19); PLATELET COUNT (AUTO) 275.0 K/uL (130-400); RED BLOOD CELL COUNT(AUTO) 4.52 MIL/uL (4.50-6.20); RED CELL DISTRIBUTION WIDTH 12.5 % (11.0-15.5); WHITE BLOOD COUNT (AUTO) 7.1 K/uL (4.8-10.8)
[2025-10-15 06:20] LABS: CREATININE 0.7 mg/dL (0.5-1.3); GLOMERULAR FILTR. RATE CALC 116.0 mL/min (>90); GLUCOSE,RANDOM 167.0 mg/dL (70-105); SODIUM SERUM 137.0 mmol/L (136-145); UREA NITROGEN, BLOOD 11.0 mg/dL (7-18)
--- NOTE | 2025-10-15 15:00 | NUR ---
[facility] Follow-up: Patient re-assessed by wound healing team. See wound assessment. Assessment and recommendations provided to primary nurse. Education provided. Patient unable to tolerate wound vac, wound care changed to vashe wet to day, wound care done.
--- NOTE | 2025-10-15 16:45 | PN ---
PROGRESS NOTE Date of Service: Oct 15, 2025 Time of Service: 16:39 SUBJECTIVE: Patient evaluated at bedside in room 313 for wound care follow up. Wound vac pending to be replaced. Patient decline for wound vac to be place report his unable to tolerate pain with placing and removing of wound vac. Discussed improved wound healing with wound vac patient decline wound vac placement. Discussed other treatment options with patient. REVIEW OF SYSTEMS CONSTITUTIONAL: Denies fever, chills, or fatigue. HEAD/FACE: No signs of trauma. EENT: Denies eye pain, blurred vision, double vision, or light sensitivity. RESPIRATORY: Denies shortness of breath, cough, wheezing CARDIOVASCULAR: Denies chest pain, palpitation, syncope GASTROINTESTINAL/ABDOMINAL: Denies abdominal pain, constipation, diarrhea, nausea or vomiting GENITOURINARY: Denies dysuria or hematuria. MUSCULOSKELETAL: Denies joint pain, tenderness, or trauma. INTEGUMENTARY: scrotal abscess NEUROLOGICAL/PSYCH: Denies anxiety, depression, heat or cold intolerance. PHYSICAL EXAM EYES: Anicteric. Pupils equal and reactive. HENT: No oral thrush seen, moist Oral mucosa NECK: Supple, no JVD or thyromegaly. LUNGS: Good air entry. No rales, no rhonchi. CARDIOVASCULAR: S1, S2 regular. No murmur heard. ABDOMEN: Soft, non tender, bowel sounds present, no organomegaly CENTRAL NERVOUS SYSTEM: Awake, alert, oriented x 3. No focal deficits. SKIN: No rashes, no swelling. LYMPHATICS: No peripheral lymphadenopathy MUSCULOSKELETAL: No joint swelling, erythema or tenderness. EXTREMITIES: No cyanosis or clubbing BACK: No deformity, no pressure ulcer. GENITOURINARY: Perineal surgical wound noted with granulation with serous drainage and mild periwound erythema, Tavares cath in place. Vital Signs (last 8hr) Date Time Temp Pulse Resp B/P (MAP) Pulse Ox O2 Delivery O2 Flow Rate FiO2 10/15/25 12:00 98.1 90 19 146/80 100 Room Air 21 LABS: Laboratory: Test 10/15/25 16:26 10/15/25 05:48 10/14/25 20:00 Range/Units Whole Blood Glucose 181 #H 70-110 MG/DL Bedside Glucose Comment Notified Nurse White Blood Count 7.1 4.8-10.8 K/uL Red Blood Count 4.52 4.50-6.20 MIL/uL Hemoglobin 14.6 14.0-18.0 g/dL Hematocrit 43.4 42-54 % Mean Corpuscular Volume 96.0 79-99 fL Mean Corpuscular Hemoglobin 32.3 27.0-33.0 pg Mean Corpuscular Hemoglobin Concent 33.6 32.0-36.0 g/dL Red Cell Distribution Width 12.5 11.0-15.5 % Platelet Count 275 130-400 K/uL Mean Platelet Volume 10.2 7.5-10.5 fL Nucleated Red Blood Cells 0.0 0.0-0.19 % Sodium Level 137 136-145 mmol/L Potassium Level 4.3 3.5-5.1 mmol/L Chloride Level 101 101-111 mmol/L Carbon Dioxide Level 27 21-32 mmol/L Blood Urea Nitrogen 11 7-18 mg/dL Creatinine 0.7 0.5-1.3 mg/dL Glomerular Filtration Rate Calc 116 >90 mL/min Random Glucose 167 H 70-105 mg/dL Total Calcium 9.7 8.5-10.1 mg/dL Magnesium Level 1.80 1.80-2.40 mg/dL Vancomycin Level Trough 16.8 # 10.0-20.0 UG/ML DIAGNOSTICS / RADIOLOGY: [ ] PROBLEM LIST : Medical Problems: Scrotal wall abscess Sepsis Uncontrolled diabetes mellitus Unspecified open wound of external genital organs, male, initial encounter Disruption of external operation wound, not elsewhere classified, initial encounter PLAN: Wound care to Perineal surgical wound: Cleanse with normal saline, pat dry, lighly pack with vashe moistened 4x4 gauze wet to dry dressing, cover with gauze, abd pad and secure with tape change BID and prn Keep wounds clean and dry Offloading/reposition q 2 hours Continue IV antibiotics per ID Comorbidities per primary care team Further Management per hospital course. Thank You for the consult and allowing us to participate in the care of this patient. ATTESTATION BY PHYSICIAN I have seen and examined the patient. I reviewed the documentation, medical decision making, and treatment plan as noted by the mid-level provider above. I agree with the findings and plan of care. ILIR AMANDA MD, MICHELLE A [facility] Oct 15, 2025 16:45 ILIR AMANDA MD Oct 17, 2025 13:08
--- NOTE | 2025-10-15 19:13 | PN ---
INFECTIOUS DISEASE PROGRESS NOTE Date of Service: Oct 15, 2025 SUBJECTIVE: Patient was seen and examined at bedside in room 313. Patient is s/p incision, drainage and debridement of the perineal abscess on 10/09/2025. During rounding today the wound VAC is still pending to be replaced and observed patient still has a black sponge inside the wound which needs to be removed. Nursing aware to remove it. Patient remains afebrile. We will continue on vancomycin and cefepime. Pending insurance appeal approval to [facility]. PHYSICAL EXAM EYES: Anicteric. Pupils equal and reactive. HENT: No oral thrush seen, moist Oral mucosa NECK: Supple, no JVD or thyromegaly. LUNGS: Good air entry. No rales, no rhonchi. CARDIOVASCULAR: S1, S2 regular. No murmur heard. ABDOMEN: Soft, non tender, bowel sounds present. CENTRAL NERVOUS SYSTEM: Awake, alert, oriented x 3. SKIN: No rashes, no swelling. LYMPHATICS: No peripheral lymphadenopathy MUSCULOSKELETAL: No joint swelling, erythema or tenderness. EXTREMITIES: No cyanosis or clubbing BACK: No deformity, no pressure ulcer. GENITOURINARY: Perineal abscess, status post I&D with wound VAC in place Vital Sign (Last 12 Hours) 10/15/25 10/15/25 10/15/25 10/15/25 08:00 08:14 12:00 16:00 Temp 98.2 98.1 Pulse 91 90 90 Resp 19 19 19 B/P (MAP) 132/97 146/80 106/84 Pulse Ox 98 93 100 100 O2 Delivery Room Air Room Air* Room Air Room Air O2 Flow Rate 0 FiO2 21 21 21 21 Intake & Output (last 24hrs) 10/14/25 10/14/25 10/15/25 15:00 23:00 07:00 Intake Total 461.0 ml 1691.0 ml 2650.0 ml Output Total 950 ml 2000 ml 3700 ml Balance -489.0 ml -309.0 ml -1050.0 ml LABS: Laboratory: Test 10/15/25 16:26 10/15/25 05:48 10/14/25 20:00 Range/Units Whole Blood Glucose 181 #H 70-110 MG/DL Bedside Glucose Comment Notified Nurse White Blood Count 7.1 4.8-10.8 K/uL Red Blood Count 4.52 4.50-6.20 MIL/uL Hemoglobin 14.6 14.0-18.0 g/dL Hematocrit 43.4 42-54 % Mean Corpuscular Volume 96.0 79-99 fL Mean Corpuscular Hemoglobin 32.3 27.0-33.0 pg Mean Corpuscular Hemoglobin Concent 33.6 32.0-36.0 g/dL Red Cell Distribution Width 12.5 11.0-15.5 % Platelet Count 275 130-400 K/uL Mean Platelet Volume 10.2 7.5-10.5 fL Nucleated Red Blood Cells 0.0 0.0-0.19 % Sodium Level 137 136-145 mmol/L Potassium Level 4.3 3.5-5.1 mmol/L Chloride Level 101 101-111 mmol/L Carbon Dioxide Level 27 21-32 mmol/L Blood Urea Nitrogen 11 7-18 mg/dL Creatinine 0.7 0.5-1.3 mg/dL Glomerular Filtration Rate Calc 116 >90 mL/min Random Glucose 167 H 70-105 mg/dL Total Calcium 9.7 8.5-10.1 mg/dL Magnesium Level 1.80 1.80-2.40 mg/dL Vancomycin Level Trough 16.8 # 10.0-20.0 UG/ML ASSESSMENT: Perineal abscess, s/p incision, drainage and debridement on 10/09/2025. Sepsis. Poorly controlled Diabetes mellitus, hemoglobin A1c 9.6. Morbid obesity. Seizure disorder. PLAN: Continue vancomycin per pharmacy protocol. Continue cefepime. Continue GI prophylaxis. Continue pain management. Continue antidiabetics. Pending insurance approval to [facility]. Still pending wound VAC dressing change today. This case has been discussed with my supervising physician . The case has been discussed and agreed upon. ATTESTATION BY PHYSICIAN I have seen and examined the patient. I reviewed the documentation, medical decision making, and treatment plan as noted by the mid-level provider above. I agree with the findings and plan of care. ISRAEL GONZALEZ MD, MIRTA L [facility] Oct 15, 2025 19:13
[2025-10-16 03:39] VITALS: BP 134/77; PULSE 91; RESP 18; TEMP 98.2
--- NOTE | 2025-10-16 04:40 | NUR ---
nurse note patient alert and oriented times 4. plan of care discussed with him and he verbalized understanding. patient showered tonight. he voids on the toilet and urinal. Patient is usually calm in bed and asks for his dilaudid every 3 hours. He is always looking at the time to see when he can ask for the dilaudid again. He has slept about 3 hours tonight. scrotal wound cleaned with ns, pat dry, applied wet to dry with vashe, 4x4 gauze, abdominal pad, medipore tape. patient showered tonight. call light within reach, bed alarm on, 2 side rails up. will continue to monitor patient.
[2025-10-16 08:36] VITALS: BP 137/76; PULSE 89; RESP 20; TEMP 98.3
[2025-10-16 11:47] VITALS: BP 128/72; PULSE 88; RESP 18; TEMP 97.8
[2025-10-16 14:20] VITALS: O2SAT 97
--- NOTE | 2025-10-16 14:58 | NUR ---
WOUND DRESSING CHANGE PATIENT TOLERATED WELL WOUND DRESSING CHANGE IN SCROTAL AREA. REMOVED DRESSING, MINIMAL DRAINAGE NOTED. CLEANED WITH NS, PAT DRY, APPLIED WET TO DRY WITH VASHE IN 4X4 GAUZE, SECURED WITH ABDOMINAL PAD AND MEDIPORE TAPE.
[2025-10-16 16:00] VITALS: BP 139/74; PULSE 82; RESP 18; TEMP 98.2
--- NOTE | 2025-10-16 19:51 | PN ---
INFECTIOUS DISEASE PROGRESS NOTE Date of Service: Oct 16, 2025 SUBJECTIVE: Patient was seen and examined at bedside in room 313. Patient is s/p incision, drainage and debridement of the perineal abscess on 10/09/2025. The wound VAC therapy has been discontinued and now doing wet-to-dry dressing changes with vashe. No fever, temperature is 97.9. We will continue on vancomycin and cefepime. PHYSICAL EXAM EYES: Anicteric. Pupils equal and reactive. HENT: No oral thrush seen, moist Oral mucosa NECK: Supple, no JVD or thyromegaly. LUNGS: Good air entry. No rales, no rhonchi. CARDIOVASCULAR: S1, S2 regular. No murmur heard. ABDOMEN: Soft, non tender, bowel sounds present. CENTRAL NERVOUS SYSTEM: Awake, alert, oriented x 3. SKIN: No rashes, no swelling. LYMPHATICS: No peripheral lymphadenopathy MUSCULOSKELETAL: No joint swelling, erythema or tenderness. EXTREMITIES: No cyanosis or clubbing BACK: No deformity, no pressure ulcer. GENITOURINARY: Perineal abscess, status post I&D. Vital Sign (Last 12 Hours) 10/16/25 10/16/25 10/16/25 08:36 11:47 16:00 Temp 98.2 97.9 98.2 Pulse 89 88 82 Resp 20 18 18 B/P (MAP) 137/76 128/72 139/74 Pulse Ox 97 97 99 O2 Delivery Room Air Room Air Room Air Intake & Output (last 24hrs) 10/15/25 10/15/25 10/16/25 15:00 23:00 07:00 Intake Total 396.0 ml 2111.0 ml 3450.0 ml Output Total 1400 ml 2300 ml 3700 ml Balance -1004.0 ml -189.0 ml -250.0 ml LABS: Laboratory: Test 10/16/25 19:34 10/15/25 16:26 10/15/25 05:48 10/14/25 20:00 Range/Units Whole Blood Glucose 186 #H 70-110 MG/DL Bedside Glucose Comment Notified Nurse White Blood Count 7.1 4.8-10.8 K/uL Red Blood Count 4.52 4.50-6.20 MIL/uL Hemoglobin 14.6 14.0-18.0 g/dL Hematocrit 43.4 42-54 % Mean Corpuscular Volume 96.0 79-99 fL Mean Corpuscular Hemoglobin 32.3 27.0-33.0 pg Mean Corpuscular Hemoglobin Concent 33.6 32.0-36.0 g/dL Red Cell Distribution Width 12.5 11.0-15.5 % Platelet Count 275 130-400 K/uL Mean Platelet Volume 10.2 7.5-10.5 fL Nucleated Red Blood Cells 0.0 0.0-0.19 % Sodium Level 137 136-145 mmol/L Potassium Level 4.3 3.5-5.1 mmol/L Chloride Level 101 101-111 mmol/L Carbon Dioxide Level 27 21-32 mmol/L Blood Urea Nitrogen 11 7-18 mg/dL Creatinine 0.7 0.5-1.3 mg/dL Glomerular Filtration Rate Calc 116 >90 mL/min Random Glucose 167 H 70-105 mg/dL Total Calcium 9.7 8.5-10.1 mg/dL Magnesium Level 1.80 1.80-2.40 mg/dL Vancomycin Level Trough 16.8 # 10.0-20.0 UG/ML ASSESSMENT: Perineal abscess, s/p incision, drainage and debridement on 10/09/2025. Sepsis. Poorly controlled Diabetes mellitus, hemoglobin A1c 9.6. Morbid obesity. Seizure disorder. PLAN: Continue vancomycin per pharmacy protocol. Continue cefepime. Continue GI prophylaxis. Continue pain management. Continue antidiabetics. Wound VAC has been discontinued. Patient will need IV antibiotics for 4 weeks. Pending insurance approval to [facility]. This case has been discussed with my supervising physician . The case has been discussed and agreed upon. ATTESTATION BY PHYSICIAN I have seen and examined the patient. I reviewed the documentation, medical decision making, and treatment plan as noted by the mid-level provider above. I agree with the findings and plan of care. ISRAEL GONZALEZ MD, MIRTA L [facility] Oct 16, 2025 19:51
[2025-10-16 20:00] VITALS: BP 121/65; PULSE 89; RESP 18; TEMP 97.9; O2SAT 98
[2025-10-17] VITALS: BP 117/70; PULSE 88; RESP 17; TEMP 98
[2025-10-17 04:00] VITALS: BP 149/84; PULSE 84; RESP 18; TEMP 97.9
[2025-10-17 08:33] VITALS: BP 125/70; PULSE 88; RESP 20; TEMP 98.4
[2025-10-17 10:59] LABS: NUCLEATED RED BLOOD CELLS 0.0 % (0.0-0.19); PLATELET COUNT (AUTO) 304.0 K/uL (130-400); RED BLOOD CELL COUNT(AUTO) 4.16 MIL/uL (4.50-6.20); RED CELL DISTRIBUTION WIDTH 12.2 % (11.0-15.5); WHITE BLOOD COUNT (AUTO) 8.9 K/uL (4.8-10.8)
[2025-10-17 11:07] LABS: CREATININE 0.7 mg/dL (0.5-1.3); GLOMERULAR FILTR. RATE CALC 116.0 mL/min (>90); GLUCOSE,RANDOM 154.0 mg/dL (70-105); SODIUM SERUM 137.0 mmol/L (136-145); UREA NITROGEN, BLOOD 7.0 mg/dL (7-18)
[2025-10-17 11:15] VITALS: O2SAT 96
[2025-10-17 16:16] VITALS: BP 128/66; PULSE 98; RESP 20; TEMP 98.1
[2025-10-17 20:00] VITALS: BP 119/70; PULSE 85; RESP 17; TEMP 97.9; O2SAT 99
[2025-10-18] VITALS: BP 122/74; PULSE 98; RESP 18; TEMP 98.3
[2025-10-18 04:00] VITALS: BP 117/72; PULSE 91; RESP 16; TEMP 98.5
[2025-10-18] MEDS: VANCOMYCIN 1.5 GM/250 ML BAG 250 ML IV SCH (05:59)
[2025-10-18 08:24] VITALS: BP 107/71; PULSE 89; RESP 18; TEMP 98.3
--- NOTE | 2025-10-18 09:07 | NUR ---
CM NOTE PER stella rep at [facility] pt accepted at [facility].
[2025-10-18 10:50] VITALS: O2SAT 96
--- NOTE | 2025-10-18 10:50 | NUR ---
WOUND CARE PATIENT TOLERATED WELL WOUND DRESSING CHANGE IN SCROTAL AREA. REMOVED DRESSING, MINIMAL DRAINAGE NOTED. CLEANED WITH NS, PAT DRY, APPLIED WET TO DRY WITH VASHE IN 4X4 GAUZE, SECURED WITH ABDOMINAL PAD AND MEDIPORE TAPE.
[2025-10-18 11:29] VITALS: BP 149/80; PULSE 94; RESP 20; TEMP 98.7
[2025-10-18 16:01] VITALS: BP 141/78; PULSE 94; RESP 20; TEMP 98.8
--- NOTE | 2025-10-18 17:31 | NUR ---
[facility] NURSE, TELMA SORTO. ALL QUESTIONS ANSWERED.
--- NOTE | 2025-10-18 17:50 | NUR ---
CALLED EMS REGARDING PATIENT'S TRANSFER TO [facility].
[2025-10-18] MEDS: VANCOMYCIN 1.75 GM/250 ML BAG 250 ML IV SCH (18:00)
--- NOTE | 2025-10-18 18:39 | NUR ---
DISCHARGE PATIENT DISCHARGED PER [facility] ORDERS. PICC LINE IN LEFT UPPER ARM IN PLACE, SALINE FLUSHED AND SALINE LOCKED. DISCHARGE INSTRUCTIONS GIVEN, AND REVIEWED HOME MEDICATION TO BE CONTINUED AND THOSE THAT ARE DISCONTINUED WITH PATIENT. PATIENT VERBALIZED UNDERSTANDING. ALL QUESTIONS ANSWERED. PATIENT LEFT VIA EMS.
--- NOTE | 2025-10-19 11:57 | PN ---
INFECTIOUS DISEASE FOLLOWUP NOTE DATE OF SERVICE: 10/17/2025 SUBJECTIVE: The patient was seen and examined at bedside. No fever, no chills. No bleeding tendency. No palpitations, no orthopnea. No cough. No shortness of breath. . PHYSICAL EXAMINATION: VITAL SIGNS: Temperature 98.3. EYES: No icterus. Pupils equal and reactive. HENT: No oral thrush seen. Moist oral mucosa. NECK: Supple. No JVD or thyromegaly. LUNGS: Good air entry. No rales, no rhonchi. CARDIOVASCULAR: S1, S2 regular. No murmur heard. ABDOMEN: Full, soft. Morbidly obese. No organomegaly. CENTRAL NERVOUS SYSTEM: Awake, alert, oriented x 3. No focal deficits. SKIN: No rashes. LYMPHATIC: No peripheral lymphadenopathy. BACK: No deformity, no pressure ulcer. GENITOURINARY: Wound in the perineal area. ASSESSMENT: A 44-year-old male with multiple problems, which include: * Sepsis. * Perineal/scortal abscess status post incision and drainage. * Morbid obesity. * Diabetes mellitus. * Hypertension. * Debility. PLAN: * Continue wound care. * Continue pain management. * Continue antibiotics. * Continue antidiabetic. * Continue GI prophylaxis. * Monitor electrolytes. TID: [id number] RECEIPT: [id number]
--- NOTE | 2025-10-19 17:21 | DS ---
DATE OF DISCHARGE: 10/18/2025. PRESENTING COMPLAINT: Perineal pain and swelling. HOSPITAL COURSE: A 44-year-old male, morbid obesity, poorly controlled diabetes mellitus, who presented with perineal pain and swelling. The patient was found to have an abscess and was admitted. The patient's culture came back with no growth. The patient was also found with nonketotic hyperglycemia. The patient has been approved for transfer. FINAL DISCHARGE DIAGNOSES: * Sepsis. * Perineal right scrotal abscess, status post incision and drainage. * Nonketotic hyperglycemia. * Morbid obesity. * Seizure disorder. PLAN: * Continue wound care. * Continue pain management. * Continue antidiabetic. * Continue cefepime. * Continue Flagyl. * Continue vancomycin. * Monitor electrolytes and correct as needed. TID: [id number] RECEIPT: [id number]
== END 2025-10-18 18:45 | DRG 854 ==
LOC: EDH 16:14 → EDHIP 19:19 → 3CH 21:05
PROVIDERS: ADMIT Internal Medicine Infectious Disease; ATTEND Internal Medicine Infectious Disease
PROC: B548ZZA Ultrasonography of Superior Vena Cava, Guidance (ICD-10-PCS; 2025-10-09)
PROC: 02HV33Z Insertion of Infusion Device into Superior Vena Cava, Percutaneous Approach (ICD-10-PCS; principal; 2025-10-09 11:16)
PROC: 0JBB0ZZ Excision of Perineum Subcutaneous Tissue and Fascia, Open Approach (ICD-10-PCS; 2025-10-09 11:16)
DX: A41.9 Sepsis, unspecified organism (principal); L02.215 Cutaneous abscess of perineum; N49.2 Inflammatory disorders of scrotum; E66.01 Morbid (severe) obesity due to excess calories; E11.65 Type 2 diabetes mellitus with hyperglycemia; I10 Essential (primary) hypertension; F32.A Depression, unspecified; G40.909 Epilepsy, unspecified, not intractable, without status epilepticus; T81.31XA Disruption of external operation (surgical) wound, not elsewhere classified, initial encounter; Z68.41 Body mass index [BMI] 40.0-44.9, adult; E78.00 Pure hypercholesterolemia, unspecified; E87.8 Other disorders of electrolyte and fluid balance, not elsewhere classified; N50.89 Other specified disorders of the male genital organs; N40.0 Benign prostatic hyperplasia without lower urinary tract symptoms; W01.0XXA Fall on same level from slipping, tripping and stumbling without subsequent striking against object, initial encounter; Z83.3 Family history of diabetes mellitus; Z91.199 Patient's noncompliance with other medical treatment and regimen due to unspecified reason
CPT/HCPCS: 36415; 36569; 71045; 74176; 76870; 80048; 80053; 80202; 81001; 82010; 82948; 83036; 83605; 83735; 85025; 85027; 85610; 85730; 87040; 87070; 87076; 87205; 88304; 99285; A4344; C1894; G0378; J0330; J0690; J0692; J1171; J1650; J1815; J2250; J2270; J2371; J2405; J2543; J2704; J3010; J3475; J3490; J7030; A4215; A4216; A4221; A4222; A4223; A4600; A4649; A4930; A6210; A9272; C1751; J3373; J3375